=== PATIENT | female | born 1930 | race African-American/Black ===

== ENCOUNTER → 2016-09-29 | Outpatient (CLI) | payer MEDICARE, MEDICAID ==
[2016-09-29 11:12] LABS: APPEARANCE,URINE CLEAR; BILIRUBIN,URINE NEGATIVE (NEGATIVE); GLUCOSE, URINE NEGATIVE (NEGATIVE); KETONES,URINE NEGATIVE (NEGATIVE); LEUKOCYTE ESTERASE,URINE SMALL (NEGATIVE); NITRITE,URINE NEGATIVE (NEGATIVE); PROTEIN,URINE 100 mg/dL (NEGATIVE); URINE SPECIFIC GRAVITY 1.008; UROBILINOGEN,URINE NEGATIVE mg/dL (<2.0)
[2016-09-29 11:24] LABS: HEMATOCRIT 31.2 % (36.0-47.0); HEMOGLOBIN 10.4 g/dL (12.0-15.5); MEAN CORPUSCULAR HGB CONC 33.4 g/dL (32.0-36.0); MEAN CORPUSCULAR VOLUME 93 fl (80-97); RED BLOOD COUNT 3.35 10^6/uL (3.72-5.28); RED CELL DISTRIBUTION WIDTH 14.7 % (11.5-14.0); WHITE BLOOD COUNT 4.5 10^3/uL (4.0-10.5)
[2016-09-29 11:49] LABS: ANION GAP 5 (5-19); BLOOD UREA NITROGEN 50 mg/dL (7-20); CALCIUM 8.8 mg/dL (8.4-10.2); CARBON DIOXIDE 29 mmol/L (22-30); CHLORIDE 103 mmol/L (98-107); CREATININE RESULT 2.94 mg/dL (0.52-1.25); GLUCOSE 95 mg/dL (75-110); POTASSIUM 4.4 mmol/L (3.6-5.0); SODIUM 136.9 mmol/L (137-145)
== END ==
LOC: LAB 10:47
PROVIDERS: ATTEND Internal Medicine Nephrology
DX: N18.4 Chronic kidney disease, stage 4 (severe) (principal); D64.9 Anemia, unspecified; I50.9 Heart failure, unspecified; E11.9 Type 2 diabetes mellitus without complications
CPT/HCPCS: 36415; 80048; 81001; 82607; 84443; 85027

== ENCOUNTER → 2016-10-30 | Outpatient (CLI) | payer MEDICARE ==
[2016-10-31 10:39] LABS: ALANINE AMINOTRANSFERASE 13 U/L (9-52); ALKALINE PHOSPHATASE 67 U/L (38-126); ANION GAP 10 (5-19); ASPARTATE AMINO TRANSFERASE 15 U/L (14-36); BLOOD UREA NITROGEN 51 mg/dL (7-20); CALCIUM 8.9 mg/dL (8.4-10.2); CARBON DIOXIDE 26 mmol/L (22-30); CHLORIDE 103 mmol/L (98-107); GLUCOSE 104 mg/dL (75-110); LDH 395 U/L (313-618); POTASSIUM 4.1 mmol/L (3.6-5.0); SODIUM 139.2 mmol/L (137-145); TOTAL PROTEIN 5.7 g/dL (6.3-8.2)
== END ==
LOC: OD 11:51
DX: Z79.899 Other long term (current) drug therapy (principal); R06.02 Shortness of breath; R53.82 Chronic fatigue, unspecified; R63.4 Abnormal weight loss; R63.0 Anorexia; E03.9 Hypothyroidism, unspecified; I12.9 Hypertensive chronic kidney disease with stage 1 through stage 4 chronic kidney disease, or unspecified chronic kidney disease; N18.4 Chronic kidney disease, stage 4 (severe); I50.32 Chronic diastolic (congestive) heart failure; D63.1 Anemia in chronic kidney disease; C80.1 Malignant (primary) neoplasm, unspecified
CPT/HCPCS: 36415; 71020; 80053; 83036; 83615; 84443

== ENCOUNTER → 2016-11-06 | Outpatient (CLI) | payer MEDICARE, MEDICAID ==
[2016-11-06 12:28] LABS: HEMOGLOBIN 10.2 g/dL (12.0-15.5); HGB HCT DIFFERENCE -0.4; MEAN CORPUSCULAR HEMOGLOBIN 31.9 pg (27.0-33.4); MEAN CORPUSCULAR VOLUME 97 fl (80-97); RED BLOOD COUNT 3.21 10^6/uL (3.72-5.28); RED CELL DISTRIBUTION WIDTH 14.4 % (11.5-14.0); WHITE BLOOD COUNT 6.3 10^3/uL (4.0-10.5)
== END ==
LOC: OD 10:56
PROVIDERS: ATTEND Internal Medicine Nephrology
DX: N18.4 Chronic kidney disease, stage 4 (severe) (principal); D64.9 Anemia, unspecified
CPT/HCPCS: 36415; 82728; 83540; 83550; 85027

== ENCOUNTER → 2016-11-09 | Outpatient (CLI) | payer MEDICARE, MEDICAID ==
--- NOTE | 2016-11-09 18:15 | XCELERA REPORT ---
[address] [address] Transthoracic Echocardiogram Report Name: MICHAEL LAWSON Age: 85 yrs Gender: Female : 1930 Patient Status: Outpatient Patient Location: Study Date: 11/09/2016 11:14 AM Height: 64 in Weight: 128 lb BSA: 1.6 m2 Procedure: A complete two-dimensional transthoracic echocardiogram was performed (2D, M-mode, spectral and color flow Doppler). The study was technically adequate with some images being suboptimal in quality. Reason For Study: HEART FAILURE Ordering Physician: JO ZARAGOZA Performed By: Kirstin Santos Interpretation Summary The left ventricular ejection fraction is normal. Doppler measurements suggest pseudonormalized left ventricular relaxation, which is associated with grade II/IV or mild to moderate diastolic dysfunction There is mild concentric left ventricular hypertrophy. The left ventricle is grossly normal size. Wall motion cannot be accurately commented on, but no definite regional wall motion abnormalities noted. The right ventricular systolic function is normal. Borderline right atrial enlargement. The left atrium is mildly dilated. There is no mitral valve stenosis. There is a moderate amount of mitral regurgitation There is no aortic valve stenosis There is a mild to moderate amount of aortic regurgitation There is a mild amount of tricuspid regurgitation There is moderate pulmonary hypertension by echo Best estimated right ventricular systolic pressure is elevated at 50- 60mmHg. Small pericardial effusion. Large cyst noted in liver MMode/2D Measurements \T\ Calculations RVDd: 2.1 cm LVIDd: 4.6 cm FS: 38.6 % Ao root diam: 2.6 cm IVSd: 1.0 cm LVIDs: 2.8 cm EDV(Teich): 96.6 ml LVPWd: 1.0 cm ESV(Teich): 30.0 ml Ao root area: 5.3 cm2 EF(Teich): 69.0 % LA dimension: 4.4 cm Doppler Measurements \T\ Calculations MV E max cynthia: MV P1/2t max cynthia: Ao V2 max: AI max cynthia: 103.1 cm/sec 102.0 cm/sec 126.9 cm/sec 503.7 cm/sec MV A max cynthia: MV P1/2t: 58.3 msec Ao max PG: AI max P.6 cm/sec 6.4 mmHg 101.5 mmHg MV E/A: 0.78 MVA(P1/2t): 3.8 cm2 AI dec slope: MV dec slope: 512.5 cm/sec2 393.9 cm/sec2 MV dec time: AI P1/2t: 0.21 sec 374.6 msec LV V1 max PG: PA V2 max: TR max cynthia: 3.5 mmHg 68.6 cm/sec 367.8 cm/sec LV V1 max: PA max P.9 mmHg TR max P.2 cm/sec 54.1 mmHg Left Ventricle The left ventricle is grossly normal size. There is mild concentric left ventricular hypertrophy. The left ventricular ejection fraction is normal. Doppler measurements suggest pseudonormalized left ventricular relaxation, which is associated with grade II/IV or mild to moderate diastolic dysfunction. Wall motion cannot be accurately commented on, but no definite regional wall motion abnormalities noted. Right Ventricle The right ventricle is grossly normal size. There is normal right ventricular wall thickness. The right ventricular systolic function is normal. Atria Borderline right atrial enlargement. The left atrium is mildly dilated. Interarterial septum not well visualized and not well dopplered. Cannot comment on ASD/PFO presence. Mitral Valve The mitral valve leaflets are sclerotic, but show no functional abnormalities. There is no mitral valve stenosis. There is a moderate amount of mitral regurgitation. Aortic Valve The aortic valve is grossly normal. There is no aortic valve stenosis. There is a mild to moderate amount of aortic regurgitation. Tricuspid Valve The tricuspid valve is not well visualized, but is grossly normal. There is no tricuspid stenosis. There is a mild amount of tricuspid regurgitation. There is moderate pulmonary hypertension by echo. Best estimated right ventricular systolic pressure is elevated at 50-60mmHg. Pulmonic Valve The pulmonic valve is not well visualized. Great Vessels The aortic root is not well visualized but is probably normal size. The inferior vena cava appeared normal and decreased > 50% with respiration (RAP 5-10 mmHg). Effusions Small pericardial effusion. Incidental Findings Large cyst noted in liver. : JO ZARAGOZA > Debbi Luna
== END ==
LOC: RAD 09:52
DX: C80.1 Malignant (primary) neoplasm, unspecified (principal); R06.02 Shortness of breath; M85.80 Other specified disorders of bone density and structure, unspecified site; Z78.0 Asymptomatic menopausal state; R63.4 Abnormal weight loss; E03.9 Hypothyroidism, unspecified; I12.9 Hypertensive chronic kidney disease with stage 1 through stage 4 chronic kidney disease, or unspecified chronic kidney disease; I50.32 Chronic diastolic (congestive) heart failure; D63.1 Anemia in chronic kidney disease; I50.9 Heart failure, unspecified
CPT/HCPCS: 71020; 74176; 77080; 93306

== ENCOUNTER → 2016-11-24 | Outpatient (CLI) | payer MEDICARE, MEDICAID | LOC: RAD 09:02 | DX: K76.89 Other specified diseases of liver (principal); N28.1 Cyst of kidney, acquired; J90 Pleural effusion, not elsewhere classified | CPT/HCPCS: 76700; 93976 ==

== ENCOUNTER → 2017-01-25 | Outpatient (CLI) | payer MEDICARE, MEDICAID ==
[2017-01-25 11:45] LABS: HEMATOCRIT 27.5 % (36.0-47.0); HEMOGLOBIN 9.1 g/dL (12.0-15.5); HGB HCT DIFFERENCE -0.2; MEAN CORPUSCULAR VOLUME 94 fl (80-97); RED BLOOD COUNT 2.93 10^6/uL (3.72-5.28); RED CELL DISTRIBUTION WIDTH 14.6 % (11.5-14.0); WHITE BLOOD COUNT 6.5 10^3/uL (4.0-10.5)
[2017-01-25 12:11] LABS: ANION GAP 11 (5-19); BLOOD UREA NITROGEN 55 mg/dL (7-20); CALCIUM 9.2 mg/dL (8.4-10.2); CARBON DIOXIDE 17 mmol/L (22-30); CHLORIDE 114 mmol/L (98-107); GLUCOSE 104 mg/dL (75-110); POTASSIUM 5.6 mmol/L (3.6-5.0)
== END ==
LOC: LAB 11:32
PROVIDERS: ATTEND Internal Medicine Nephrology
DX: N18.4 Chronic kidney disease, stage 4 (severe) (principal); E50.9 Vitamin A deficiency, unspecified; D64.9 Anemia, unspecified; E11.9 Type 2 diabetes mellitus without complications
CPT/HCPCS: 36415; 80048; 85027

== ENCOUNTER 2017-01-28 01:24 | Emergency (ER) | payer MEDICARE, MEDICAID ==
[2017-01-28] MEDS ORDERED: FUROSEMIDE INJ/PF 40 MG/4 ML SDV IV ONE (01:37)
[2017-01-28] MEDS ORDERED: NITROGLYCERIN/D5W 250 ML IV PRN ×2 (01:39→08:36)
--- NOTE | 2017-01-28 01:42 | ER Document Report ---
ED Respiratory Problem - General Stated Complaint: SHORTNESS OF BREATH Notes: This is an 86-year-old -[place] female with multiple medical problems to include CHF, hypertension, chronic kidney disease who presents in severe respiratory distress. EMS states that her room air sat on arrival was 79%. Also she was noted to be significantly hypertensive initially with a blood pressure of 270/176. In route she was placed on CPAP by EMS and was given 0.4 of nitroglycerin sublingual as well as a DuoNeb. Upon arrival to the emergency department patient is alert and able to say that she is breathing much better with the CPAP. Family states that patient was seen by her kidney doctor Dr. Kwon yesterday. They state that she has had difficulty controlling her blood pressure and has been swollen at home for the past few days. Yesterday she was instructed to double her Lasix dose from 20 mg to 40 mg once a day. Also she was instructed to increase her clonidine dose. Patient denies any chest pain. She has not been running fevers. TRAVEL OUTSIDE OF THE [place] IN LAST 30 DAYS: No - Related Data Allergies/Adverse Reactions: No Known Allergies Allergy (Verified 01/22/16 16:38) Past Medical History - General Information source: [facility] Records - Social History Smoking Status: Unknown if Ever Smoked Family History: CAD - Past Medical History Cardiac Medical History: Reports: Hx Coronary Artery Disease, Hx Hypertension Denies: Hx Heart Attack Pulmonary Medical History: Denies: Hx Asthma, Hx Bronchitis, Hx COPD, Hx Pneumonia Neurological Medical History: Denies: Hx Cerebrovascular Accident, Hx Seizures Endocrine Medical History: Reports: Hx Diabetes Mellitus Type 2, Hx Hypothyroidism Renal/ Medical History: Reports: Other - stage 4 CKD, no history of dialysis. Denies: Hx Hemodialysis Musculoskeltal Medical History: Reports Hx Arthritis - general Psychiatric Medical History: Denies: Hx Depression Past Surgical History: Reports: Hx Abdominal Surgery - 'BLOCKAGE', Hx Orthopedic Surgery - HERNIATED DISCS. Denies: Hx Hysterectomy - Immunizations Hx Diphtheria, Pertussis, Tetanus Vaccination: Yes Review of Systems - Review of Systems Constitutional: denies: Chills, Fever EENT: No symptoms reported Cardiovascular: Orthopnea, Dyspnea. denies: Chest pain Respiratory: See HPI Gastrointestinal: No symptoms reported Genitourinary: No symptoms reported Musculoskeletal: See HPI, Leg swelling Skin: No symptoms reported Hematologic/Lymphatic: No symptoms reported Neurological/Psychological: No symptoms reported Physical Exam - Vital signs Vitals: Resp Pulse Ox 23 H 99 01/28/17 01:30 01/28/17 01:30 - Notes Notes: PHYSICAL EXAMINATION: GENERAL: Frail elderly ill-appearing female on CPAP who is alert and conversant. HEAD: Atraumatic, normocephalic. EYES: Pupils equal round and reactive to light, extraocular movements intact, sclera anicteric, conjunctiva are normal. ENT: nares patent, oropharynx clear without exudates. Moist mucous membranes. NECK: Normal range of motion, supple without lymphadenopathy LUNGS: Faint scattered wheeze bilaterally. Bibasilar crackles. Diminished breath sounds in the left base. HEART: Regular rate and rhythm without murmurs ABDOMEN: Soft, nontender, normoactive bowel sounds. EXTREMITIES: 2+ pitting edema in the bilateral lower extremities. NEUROLOGICAL: Cranial nerves grossly intact. No gross focal motor or sensory deficits appreciated. PSYCH: Normal mood, normal affect. SKIN: Warm, Dry, normal turgor, no rashes or lesions noted. Course - Re-evaluation Re-evalutation: 01/28/17 01:47 Patient presents critically ill and acute respiratory distress although improving with the CPAP. She will be given Lasix IV as well as placed on a nitro drip. We transitioned her CPAP to our BiPAP machine. She will require frequent re-evaluations. 01/28/17 06:21 Pt has had dramatic improvement since initiation of BiPap and NTG drip. CT demonstrates moderate pericardial effusion, bilateral pleural effusions I have discussed the case with cardiology Dr. Luna, and initial plan was to order echo and await 2nd troponin. Second troponin is elevated as well to 0.33. Patient is denying chest pain to me. There are no acute ischemic changes seen on her EKG. I discussed again with Dr. uLna and he recommends admitting here to hospitalist and proceeding with echocardiogram. Discussed with pateint and family. Patient to be transfused 1 unit PRBC given significant anemia Discussed case with Dr. Monge... admit to [facility]. - Vital Signs Vital signs: Temp Pulse Resp BP Pulse Ox 97.9 F 14 180/82 H 100 01/28/17 10:36 01/28/17 10:36 01/28/17 10:36 01/28/17 10:36 - Laboratory Result Diagrams: 01/28/17 01:42 01/28/17 08:42 Laboratory results interpreted by me: 01/28/17 01/28/17 01/28/17 01:42 01:42 01:42 WBC 11.5 H RBC 2.50 L Hgb 7.6 L Hct 23.6 L RDW 14.8 H Seg Neutrophils % 83.6 H Lymphocytes % 8.7 L Absolute Neutrophils 9.7 H Carbonic Acid ABG pCO2 ABG pO2 ABG HCO3 ABG Total CO2 VBG pCO2 VBG HCO3 Chloride 115 H Carbon Dioxide 17 L BUN 47 H Creatinine 3.16 H Est GFR ( Amer) 17 L Est GFR (Non-Af Amer) 14 L Glucose 175 H POC Glucose Direct Bilirubin 0.7 H AST 86 H ALT 60 H NT-Pro-B Natriuret Pep 34264 H Total Protein 5.3 L Albumin 2.7 L Urine Protein Crossmatch 01/28/17 01/28/17 01/28/17 01:42 04:28 08:25 WBC RBC Hgb Hct RDW Seg Neutrophils % Lymphocytes % Absolute Neutrophils Carbonic Acid 0.86 L ABG pCO2 28.7 L ABG pO2 104.9 H ABG HCO3 17.5 L ABG Total CO2 18.3 L VBG pCO2 VBG HCO3 Chloride Carbon Dioxide BUN Creatinine Est GFR ( Amer) Est GFR (Non-Af Amer) Glucose POC Glucose Direct Bilirubin AST ALT NT-Pro-B Natriuret Pep Total Protein Albumin Urine Protein 100 H Crossmatch See Detail 01/28/17 01/28/17 01/28/17 08:42 08:42 10:09 WBC RBC Hgb Hct RDW Seg Neutrophils % Lymphocytes % Absolute Neutrophils Carbonic Acid ABG pCO2 ABG pO2 ABG HCO3 ABG Total CO2 VBG pCO2 31.5 L VBG HCO3 18.1 L Chloride 113 H Carbon Dioxide 19 L BUN 46 H Creatinine 3.16 H Est GFR ( Amer) 17 L Est GFR (Non-Af Amer) 14 L Glucose 126 H POC Glucose 124 H Direct Bilirubin AST ALT NT-Pro-B Natriuret Pep Total Protein Albumin Urine Protein Crossmatch Critical Care Note - Critical Care Note Total time excluding time spent on procedures (mins): 40 - time spent on frequent re-evaluations and managment and discussion with consultants and family members, exclusive of any procedures Discharge - Discharge Clinical Impression: Respiratory distress, Hypertensive emergency, Pericardial effusion, Elevated troponin CHF exacerbation Qualifiers: Congestive heart failure type: unspecified congestive heart failure type Qualified Code(s): I50.9 - Heart failure, unspecified Anemia Qualifiers: Anemia type: unspecified type Qualified Code(s): D64.9 - Anemia, unspecified Condition: Serious Disposition: ADMITTED INPATIENT Admitting Provider: Hospitalist - Dr Monge Unit Admitted: ICU
[2017-01-28 02:06] LABS: ARTERIAL BLOOD BASE EXCESS -6.5 mmol/L; ARTERIAL BLOOD O2 SATURATION 97.9 % (94-98)
[2017-01-28] MEDS ORDERED: CEFTRIAXONE 1 GM/D5W RTU 50 ML IV ONE (02:09)
[2017-01-28] MEDS ORDERED: AZITHROMYCIN INJ 500 MG VIAL IV ONE (02:09)
[2017-01-28 02:14] LABS: ABSOLUTE BASOPHILS # (AUTO) 0.1 10^3/uL (0.0-0.2); ABSOLUTE EOSINOPHILS # (AUTO) 0.2 10^3/uL (0.0-0.6); ABSOLUTE MONOCYTES (AUTO) 0.6 10^3/uL (0.1-1.4); ABSOLUTE NEUT (AUTO) 9.7 10^3/uL (1.7-8.2); BASOPHILS % (AUTO) 0.7 % (0-2); EOSINOPHILS % (AUTO) 1.8 % (0-6); HEMATOCRIT 23.6 % (36.0-47.0); HGB HCT DIFFERENCE -0.8; LYMPHOCYTES % (AUTO) 8.7 % (13-45); MEAN CORPUSCULAR HEMOGLOBIN 30.4 pg (27.0-33.4); MEAN CORPUSCULAR HGB CONC 32.3 g/dL (32.0-36.0); MEAN CORPUSCULAR VOLUME 94 fl (80-97); MONOCYTES % (AUTO) 5.2 % (3-13); RED CELL DISTRIBUTION WIDTH 14.8 % (11.5-14.0); SEGMENTED NEUTROPHILS % (AUTO) 83.6 % (42-78); WHITE BLOOD COUNT 11.5 10^3/uL (4.0-10.5)
[2017-01-28 02:21] LABS: PARTIAL THROMBOPLASTIN TIME 28.6 SEC (23.5-35.8); PROTHROMBIN TIME 14.1 SEC (11.4-15.4)
[2017-01-28 02:23] LABS: HEMOGLOBIN 7.6 g/dL (12.0-15.5)
[2017-01-28 02:27] LABS: ALANINE AMINOTRANSFERASE 60 U/L (9-52); ALBUMIN 2.7 g/dL (3.5-5.0); ALKALINE PHOSPHATASE 53 U/L (38-126); ANION GAP 7 (5-19); ASPARTATE AMINO TRANSFERASE 86 U/L (14-36); BILIRUBIN,DIRECT 0.7 mg/dL (0.0-0.4); BILIRUBIN,TOTAL 0.9 mg/dL (0.2-1.3); BLOOD UREA NITROGEN 47 mg/dL (7-20); CALCIUM 8.6 mg/dL (8.4-10.2); CARBON DIOXIDE 17 mmol/L (22-30); CHLORIDE 115 mmol/L (98-107); CREATINE KINASE 99 U/L (30-135); CREATININE RESULT 3.16 mg/dL (0.52-1.25); GLUCOSE 175 mg/dL (75-110); POTASSIUM 4.7 mmol/L (3.6-5.0); SODIUM 138.7 mmol/L (137-145); TOTAL PROTEIN 5.3 g/dL (6.3-8.2)
[2017-01-28 02:39] LABS: CREATINE KINASE MB 1.89 ng/mL (<4.55)
[2017-01-28 02:47] LABS: TROPONIN I 0.068 ng/mL
[2017-01-28] MEDS ORDERED: NORMAL SALINE 250 ML IV PRN (03:19)
[2017-01-28] MEDS ORDERED: ASPIRIN 300 MG SUPP, RECTAL PR ONE (06:21)
[2017-01-28 07:47] LABS: ADD ON TESTING BLD IN LAB ACKNOWLEDGE
[2017-01-28] MEDS ORDERED: IPRATROPIUM/ALBUTEROL 0.5-2.5 MG/3 ML AMPUL NEB PRN (08:15)
--- NOTE | 2017-01-28 08:22 | PDOC H&P/TRANSFER SUM ---
General Admission Date/PCP: 01/28/17 06:31 PCP ?? Nephro Doyle - Transfer Diagnosis (1) Acute respiratory failure with hypoxia Diagnosis Summary: Continue BiPAP. Wean as tolerated. (2) Acute on chronic diastolic (congestive) heart failure Diagnosis Summary: Dr. Luna to order echocardiogram and see in consultation. Resume home medications as appropriate once these have been determined and reviewed. (4) Hypothyroidism Diagnosis Summary: Resume home medications as appropriate once these have been determined and reviewed. (5) Hypertensive emergency Diagnosis Summary: Continue nitroglycerin drip. Appropriate vital sign parameters in chart. (6) Pericardial effusion Diagnosis Summary: Patient discussed in detail with daytime hospitalist team. Tentative plans at this point are to transfer patient to a tertiary center for urgent dialysis, with our facility lacking this capability on the weekend. I have strongly encouraged patient not to get out of bed without notifying staff , to avoid a fall with injury. Knee high SCDs for DVT prophylaxis; with patient requiring blood transfusion, will forego Lovenox or heparin at this point in time. Impression and plans were discussed with patient, and daughter, both of whom concur. Time spent in evaluation and management of patient: 90 critical care minutes. (7) Elevated troponin Diagnosis Summary: Likely due to elevated blood pressure. Patient denies chest pain. (8) Anemia Diagnosis Summary: Blood transfusion has been ordered by emergency room physician. (9) Abnormal chest CT Diagnosis Summary: Bilateral pleural effusions, with basilar atelectasis. Incentive spirometry. - Transfer Medications Transfer Medications: Current Medications Nitroglycerin/Dextrose (Ntg Rtu 50 Mg/D5w 250 Ml Iv Premix Bottle) 250 mls @ 0 mls/hr IV CONTINUOUS PRN; Protocol; Titrate PRN Reason: THIS MED IS NOT "PRN" Stop: 02/27/17 01:38 Last Admin: 01/28/17 03:17 Dose: 250 ml Sodium Chloride (Nacl 0.9% 250 Ml Iv Soln) 250 mls @ 0 mls/hr IV CONTINUOUS PRN ; As Directed PRN Reason: AFTER EACH UNIT Stop: 01/29/17 03:18 - Allergies Allergies/Adverse Reactions: No Known Allergies Allergy (Verified 01/22/16 16:38) History of Present Illness Admission Date/PCP: 01/28/17 06:31 Patient complains of: difficulty breathing History of Present Illness: MICHAEL LAWSON is a 86 year old female with underlying chronic diastolic congestive heart failure, stage IV chronic kidney disease, hypothyroidism, difficult to control blood pressure, and anemia, who presents to the emergency room for evaluation of above complaint. Patient has been discussed with emergency room physician who evaluated the patient. Patient herself is somewhat fatigued, currently on BiPAP, and as a result, her daughter, who is present at her side with her approval, provides a good bit of information concerning both acute and chronic aspects of her health care. Was seen by Dr. Kwon on the sixth for complaints of several day history of gradually increasing shortness of breath, weight gain, and lower extremity swelling. Shortness of breath was particularly noticeable with much of any exertion. Lasix doubled from 20-40 mg a day, along with increase in her clonidine. Shortness of breath became progressively worse, in particular over the last 18 hours or so. On EMS arrival at their home, room air saturation was 79% with an initial blood pressure reportedly 270/176. CPAP was applied by EMS and patient was given 0.4 mg of sublingual nitroglycerin, along with a DuoNeb. Remained in significant respiratory distress upon arrival in the emergency room , but has improved nicely, according to the emergency room physician, with change of CPAP to BiPAP, along with initiation of nitroglycerin drip and 40 mg of IV Lasix. No fever chills, chest or abdominal pain, nausea vomiting, diarrhea or dysuria. Patient and daughter states that while she is compliant with her medications, she is not as compliant with her diet. Labs and x-ray results, including pericardial effusion, were discussed by the emergency room physician with on-call cardiology, Dr. Luna, who felt comfortable admitting the patient to our facility. plans are to obtain echocardiogram, Dr. Luna will see in consultation. Laboratory results are listed in [facility] and are reviewed. X-ray summary results are listed below, with full report(s) reviewed. . EKG reviewed. And compared to a tracing from June 01 of last year. Social history/personal habits: Lives with family. No use of alcohol tobacco or illicit drugs. Allergies/adverse reactions NKDA. Home medications Home medications initially autopopulated into [facility] may not accurately reflect patient's true medications, dosages, and/or frequencies. safety relief valve technician to reconcile medications. Unfortunately, patient uncertain of her medications/dosages/frequencies. REVIEW OF SYSTEMS: See history and present illness.No further information available this point in time. PHYSICAL EXAMINATION: 5 feet 4 inches tall. 66.3 kg. BMI 25.1 kg/m. Pulse 77 and regular. 100% saturation on BiPAP 12/6, 40%. Respirations are 32, with patient at times making mild use of her accessory respiratory muscles. Manual Blood pressure 192 /100, right arm, 208/98, left arm. Well-nourished well-developed -[place] female appearing a number of years younger than her stated age. Fatigued, but does respond appropriately to basic questions. Appears not to feel very well. However, pleasant and cooperative. Mildly anxious, but without agitation. Skin is warm and dry. No grossly obvious evidence of rash in areas of skin examined. No subcutaneous nodules palpated. ENT: Hearing grossly normal to normal conversation. Tongue midline on protrusion pink and slightly tacky. Exam slightly limited by BiPAP mask with attaching straps. Eyes: No scleral icterus. Pupils equal and reactive to light at 4 mm. [place] conjunctivae. Neck is supple and nontender to gentle active range of motion and palpation. Midline trachea. No palpable thyroid nodule mass enlargement or tenderness. Lymphatic: No palpable cervical or clavicular nodes. Neck and lymphatic exams limited by patient body habitus. Exam slightly limited by BiPAP mask with attaching straps. Psychiatric: Difficult to evaluate adequately due to her current status, but patient does respond appropriately to basic questions. Lungs: Auscultation reveals clear and equal breath sounds bilaterally. Cardiovascular: Heart regular rate and rhythm, without gallop murmur or rub. No abdominal aortic bruits. Scant bilateral symmetric calf, ankle and pedal edema. Faintly palpable dorsalis pedis pulses. Difficult to evaluate for carotid bruit due to airway sounds from BiPAP device. Abdomen: soft, slightly, distended nontender with positive bowel sounds. Unable to adequately evaluate abdomen for masses or organomegaly due to distention. Extremities: Feet are warm and dry. No calf tenderness to compression. Gentle manipulation of lower extremities fails to reveal any obvious evidence of injury or instability to knees hips or ankles. Neurologic: Moves upper extremities grossly normally. Patellar reflexes absent. Absent Babinski. Light touch is intact at feet. Dorsiflexion and plantarflexion of feet 5 / 5 and symmetric. Past Medical History Cardiac Medical History: Reports: Congestive Heart Failure, Coronary Artery Disease, Hypertension Denies: DVT, Myocardial Infarction, Pulmonary Embolism Pulmonary Medical History: Denies: Asthma, Bronchitis, Chronic Obstructive Pulmonary Disease (COPD), Pneumonia, Sleep Apnea EENT Medical History: Reports: Eyes - Glasses, Ears - Partial hearing loss Denies: Throat Neurological Medical History: Denies: Hemorrhagic CVA, Ischemic CVA, Seizures Endocrine Medical History: Reports: Diabetes Mellitus Type 2, Hypothyroidism Denies: Hyperthyroidism Renal/ Medical History: Reports: Chronic Kidney Disease GI Medical History: Reports: Other - "Spot" on her liver, present for years, followed as an outpatient. Denies: Cirrhosis, Gastroesophageal Reflux Disease, Hepatitis, Peptic Ulcer Disease Musculoskeltal Medical History: Reports: Arthritis - general Skin Medical History: Reports: None Psychiatric Medical History: Denies: Alcohol Dependency, Depression, General Anxiety Disorder, Substance Abuse, Tobacco Dependency Hematology: Reports: Anemia Infectious Medical History: Denies: Clostridium Difficile, Hepatitis B, Hepatitis C, Methicillin- Resistant Staph Aureus Past Surgical History Past Surgical History: Reports: Orthopedic Surgery - HERNIATED DISCS, Other - Abdominal surgery for "blockage." Denies: Hysterectomy Social History Information Source: Patient, Relative - Daughter, Emergency Med Personnel, [facility] Records Lives with: Family Smoking Status: Unknown if Ever Smoked Frequency of Alcohol Use: None Hx Recreational Drug Use: No Hx Prescription Drug Abuse: No - Advance Directive Resuscitation Status: Full Code Surrogate healthcare decision maker:: Family Family History Family History: CAD Parental Family History Reviewed: No - due to patient status. tinformation from hospital records. Children Family History Reviewed: No - due to patient status. tinformation from hospital records. Sibling(s) Family History Reviewed.: No - due to patient status. tinformation from hospital records. Physical Exam Vital Signs: Temp Pulse Resp BP Pulse Ox 98.0 F 16 192/100 H 100 01/28/17 01:32 01/28/17 05:16 01/28/17 06:51 01/28/17 05:16 Results Impressions: Chest X-Ray 01/28/17 01:38 IMPRESSION: Small bilateral pleural effusions with bibasilar airspace opacities , may represent atelectasis or pneumonia. Mild central vascular congestion. Interval development of severe cardiomegaly, a pericardial effusion is not excludable. Chest CT 01/28/17 03:32 IMPRESSION: Moderate pericardial effusion. Moderate bilateral pleural effusions right greater than left. Stable hepatic cysts.
[2017-01-28 08:28] LABS: MAGNESIUM 2.2 mg/dL (1.6-2.3)
[2017-01-28] MEDS ORDERED: GLUCAGON,HUMAN RECOMB 1 MG INJ IM PRN (08:28)
[2017-01-28] MEDS ORDERED: DEXTROSE 40% GEL 15 GM TUBE PO PRN ×2 (08:28)
[2017-01-28] MEDS ORDERED: DEXTROSE 50%-WATER 25 GM/50 ML DISP.SYRIN IV PRN ×2 (08:28)
[2017-01-28] MEDS ORDERED: INSULIN REG, HUMAN 100 UNIT/ML 3 ML VIAL (PYX) SUBCUT PRN (08:28)
[2017-01-28] MEDS ORDERED: ACETAMINOPHEN 325 MG TABLET PO PRN (08:44)
[2017-01-28 08:56] LABS: APPEARANCE,URINE CLEAR; BILIRUBIN,URINE NEGATIVE (NEGATIVE); GLUCOSE, URINE NEGATIVE (NEGATIVE); KETONES,URINE NEGATIVE (NEGATIVE); LEUKOCYTE ESTERASE,URINE NEGATIVE (NEGATIVE); NITRITE,URINE NEGATIVE (NEGATIVE); PROTEIN,URINE 100 mg/dL (NEGATIVE); URINE SPECIFIC GRAVITY 1.006; UROBILINOGEN,URINE NEGATIVE mg/dL (<2.0)
--- NOTE | 2017-01-28 08:59 | EKG REPORT ---
SEVERITY:- ABNORMAL ECG - SINUS RHYTHM ANTERIOR INFARCT, AGE INDETERMINATE LOW VOLTAGE STANDARD AND LIMB LEADS. : Confirmed by: Elijah Lewis MD 28-Jan-2017 08:58:23
--- NOTE | 2017-01-28 09:11 | PDOC TRANSFER SUMMARY ---
General Admission Date/PCP: 01/28/17 06:31 Admission Date: 01/28/17 Transfer Date: 01/28/17 Accepting Facility: [facility] Accepting Physician: Dr. 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 ml/min Is this a current diagnosis for this admission?: Yes (4) Acute on chronic diastolic (congestive) heart failure Is this a current diagnosis for this admission?: Yes (5) Elevated troponin Is this a current diagnosis for this admission?: Yes (6) Bilateral pleural effusion Is this a current diagnosis for this admission?: Yes (7) Abnormal chest CT Is this a current diagnosis for this admission?: Yes (8) Hypothyroidism Is this a current diagnosis for this admission?: Yes (9) Pericardial effusion Is this a current diagnosis for this admission?: Yes (10) Anemia Is this a current diagnosis for this admission?: Yes (11) IDDM (insulin dependent diabetes mellitus) Is this a current diagnosis for this admission?: Yes - Transfer Medications Transfer Medications: Current Medications Acetaminophen (Tylenol 325 Mg Tablet) 650 mg PO Q8HP PRN Stop: 02/27/17 08:43 Albuterol/Ipratropium (Duoneb 3 Ml Ampul) 3 ml NEB RTQ4HP PRN Stop: 02/27/17 08:14 Dextrose (Dextrose Inj 50% Syringe (25 Gm/50 Ml)) 12.5 gm IV PRN PRN; Protocol PRN Reason: FOR BG 50-69 IN ALERT PATIENT Stop: 02/27/17 08:27 Dextrose (Dextrose Inj 50% Syringe (25 Gm/50 Ml)) 25 gm IV PRN PRN PRN Reason: Protocol Stop: 02/27/17 08:27 Glucagon (Glucagen Inj 1 Mg Vial) 1 mg IM PRN PRN; Protocol PRN Reason: Evaluate for BG < 70 Stop: 02/27/17 08:27 Glucose (Glutose 40% Gel 15 Gm Tube) 15 gm PO PRN PRN; Protocol PRN Reason: FOR BG 50-69 IN ALERT PATIENT Stop: 02/27/17 08:27 Glucose (Glutose 40% Gel 15 Gm Tube) 30 gm PO PRN PRN; Protocol PRN Reason: FOR BG < 50 IN ALERT PATIENT Stop: 02/27/17 08:27 Sodium Chloride (Nacl 0.9% 250 Ml Iv Soln) 250 mls @ 0 mls/hr IV CONTINUOUS PRN ; As Directed PRN Reason: AFTER EACH UNIT Stop: 01/29/17 03:18 Nitroglycerin/Dextrose (Ntg Rtu 50 Mg/D5w 250 Ml Iv Premix Bottle) 250 mls @ 0 mls/hr IV CONTINUOUS PRN; Protocol; Titrate PRN Reason: THIS MED IS NOT "PRN" Stop: 02/27/17 08:35 Insulin Human Regular (Humulin R (Pyxis) Insulin 100 Unit/Ml 3ml) 0 - 12 unit SUBCUT Q6HP PRN PRN Reason: Protocol Stop: 02/27/17 08:27 Sodium Chloride (Saline Flush 2.5 Ml Monoject Prefil Syrin) 2.5 ml IV Q8 MARISELA Stop: 02/27/17 13:59 Hydralazine 100 mg by mouth every 8 hours Coreg 25 mg by mouth every 12 hours Clonidine 0.1 mg by mouth every 8 hours Levothyroxine 25 g by mouth daily Lasix 40 mg IV every 8 hours Aspirin 81 mg by mouth daily - Allergies Allergies/Adverse Reactions: No Known Allergies Allergy (Verified 01/22/16 16:38) Hospital Course Hospital Course: Patient presented to our facility with shortness of breath. She has a history of stage V chronic kidney disease and is followed by Dr. Jung Kwon of nephrology. Family states that Dr. Kwon has mentioned that she may be approaching dialysis range soon. Upon presentation patient was found to be hypoxic with O2 sat in the 70s and has been started on BiPAP for respiratory support. Patient was noted to have hypertensive emergency with blood pressure as high as 235/202. She was also noted to have pulmonary edema, bilateral pleural effusions, moderate pericardial effusion. Second troponin was elevated at 0.3. Patient denies chest pain. EKG showed no ST elevation or depression. With regard to respiratory failure patient is currently comfortable on BiPAP at this time. She will need emergent hemodialysis for fluid management. For now she has been placed on nitroglycerin drip, IV Lasix. With regard to pericardial and pleural effusions patient may need CT surgery recommendations. I would imagine pericardial effusion is secondary to end- stage renal disease. With regard to hypertensive emergency patient is currently on nitroglycerin drip at 15 mcg/min. She has been started on her outpatient blood pressure medicines which include clonidine, Coreg, hydralazine. With regard to elevated troponin. Patient denies chest pain. EKG shows no ST elevation or depression. This may be secondary to decompensated CHF however patient warrants further cardiology evaluation. She has been started on aspirin. She is very taking a beta chris at this time. Patient has history of insulin-dependent diabetes. Medications have not been verified at this time. Patient is placed on sliding scale insulin for now. Case has been discussed with fraud analyst on-call at [facility] (Dr. Lambert) and he agrees to accept patient in transfer to medical ICU. Physical Exam Vital Signs: Temp Pulse Resp BP Pulse Ox 97.5 F 16 191/85 H 100 01/28/17 07:45 01/28/17 07:58 01/28/17 07:56 01/28/17 07:58 GENERAL: Slightly tachypneic on BiPAP HEENT: Conjunctiva clear, nonicteric, moist mucous membranes, no JVD, midline trachea RESPIRATORY: Bilateral crackles anterior lung field CARDIAC: Regular rate and rhythm, no murmurs/gallops/rubs ABDOMEN: Soft, nondistended, nontender, positive bowel sounds, no rebound, no guarding EXTREMETIES: 1+ bilateral lower extremity edema NEUROLOGIC: Alert, oriented to person/place/time, CN's grossly intact, no focal deficits SKIN: No rash, wounds PSYCH: Normal mood, normal affect Results Laboratory Results: Labs- All tests 24 hr 01/28/17 01/28/17 01/28/17 01:42 01:42 01:42 WBC 11.5 H RBC 2.50 L Hgb 7.6 L Hct 23.6 L MCV 94 MCH 30.4 MCHC 32.3 RDW 14.8 H Plt Count 152 Seg Neutrophils % 83.6 H Lymphocytes % 8.7 L Monocytes % 5.2 Eosinophils % 1.8 Basophils % 0.7 Absolute Neutrophils 9.7 H Absolute Lymphocytes 1.0 Absolute Monocytes 0.6 Absolute Eosinophils 0.2 Absolute Basophils 0.1 PT 14.1 INR 1.06 APTT 28.6 Carbonic Acid HCO3/H2CO3 Ratio ABG pH ABG pCO2 ABG pO2 ABG HCO3 ABG Total CO2 ABG O2 Saturation ABG Base Excess FiO2 Sodium 138.7 Potassium 4.7 Chloride 115 H Carbon Dioxide 17 L Anion Gap 7 BUN 47 H Creatinine 3.16 H Est GFR ( Amer) 17 L Est GFR (Non-Af Amer) 14 L Glucose 175 H Calcium 8.6 Magnesium Total Bilirubin 0.9 Direct Bilirubin 0.7 H Indirect Bilirubin Not Reportable Neonat Total Bilirubin Not Reportable AST 86 H ALT 60 H Alkaline Phosphatase 53 Creatine Kinase 99 CK-MB (CK-2) Troponin I NT-Pro-B Natriuret Pep Total Protein 5.3 L Albumin 2.7 L Urine Color Urine Appearance Urine pH Ur Specific [place] Urine Protein Urine Glucose (UA) Urine Ketones Urine Blood Urine Nitrite Urine Bilirubin Urine Urobilinogen Ur Leukocyte Esterase Urine WBC (Auto) Urine RBC (Auto) U Hyaline Cast (Auto) Urine Bacteria (Auto) Squamous Epi Cells Auto Urine Ascorbic Acid Blood Type Blood Type Confirm Antibody Screen Crossmatch 01/28/17 01/28/17 01/28/17 01:42 01:42 04:28 WBC RBC Hgb Hct MCV MCH MCHC RDW Plt Count Seg Neutrophils % Lymphocytes % Monocytes % Eosinophils % Basophils % Absolute Neutrophils Absolute Lymphocytes Absolute Monocytes Absolute Eosinophils Absolute Basophils PT INR APTT Carbonic Acid 0.86 L HCO3/H2CO3 Ratio 20:1 ABG pH 7.40 ABG pCO2 28.7 L ABG pO2 104.9 H ABG HCO3 17.5 L ABG Total CO2 18.3 L ABG O2 Saturation 97.9 ABG Base Excess -6.5 FiO2 50% Sodium Potassium Chloride Carbon Dioxide Anion Gap BUN Creatinine Est GFR ( Amer) Est GFR (Non-Af Amer) Glucose Calcium Magnesium Total Bilirubin Direct Bilirubin Indirect Bilirubin Neonat Total Bilirubin AST ALT Alkaline Phosphatase Creatine Kinase CK-MB (CK-2) 1.89 Troponin I 0.068 NT-Pro-B Natriuret Pep 77554 H Total Protein Albumin Urine Color Urine Appearance Urine pH Ur Specific [place] Urine Protein Urine Glucose (UA) Urine Ketones Urine Blood Urine Nitrite Urine Bilirubin Urine Urobilinogen Ur Leukocyte Esterase Urine WBC (Auto) Urine RBC (Auto) U Hyaline Cast (Auto) Urine Bacteria (Auto) Squamous Epi Cells Auto Urine Ascorbic Acid Blood Type O POSITIVE Blood Type Confirm Antibody Screen POSITIVE Crossmatch See Detail 01/28/17 01/28/17 01/28/17 04:29 05:25 05:25 WBC RBC Hgb Hct MCV MCH MCHC RDW Plt Count Seg Neutrophils % Lymphocytes % Monocytes % Eosinophils % Basophils % Absolute Neutrophils Absolute Lymphocytes Absolute Monocytes Absolute Eosinophils Absolute Basophils PT INR APTT Carbonic Acid HCO3/H2CO3 Ratio ABG pH ABG pCO2 ABG pO2 ABG HCO3 ABG Total CO2 ABG O2 Saturation ABG Base Excess FiO2 Sodium Potassium Chloride Carbon Dioxide Anion Gap BUN Creatinine Est GFR ( Amer) Est GFR (Non-Af Amer) Glucose Calcium Magnesium 2.2 Total Bilirubin Direct Bilirubin Indirect Bilirubin Neonat Total Bilirubin AST ALT Alkaline Phosphatase Creatine Kinase CK-MB (CK-2) Troponin I 0.339 NT-Pro-B Natriuret Pep Total Protein Albumin Urine Color Urine Appearance Urine pH Ur Specific [place] Urine Protein Urine Glucose (UA) Urine Ketones Urine Blood Urine Nitrite Urine Bilirubin Urine Urobilinogen Ur Leukocyte Esterase Urine WBC (Auto) Urine RBC (Auto) U Hyaline Cast (Auto) Urine Bacteria (Auto) Squamous Epi Cells Auto Urine Ascorbic Acid Blood Type Blood Type Confirm O POSITIVE Antibody Screen Crossmatch 01/28/17 08:25 WBC RBC Hgb Hct MCV MCH MCHC RDW Plt Count Seg Neutrophils % Lymphocytes % Monocytes % Eosinophils % Basophils % Absolute Neutrophils Absolute Lymphocytes Absolute Monocytes Absolute Eosinophils Absolute Basophils PT INR APTT Carbonic Acid HCO3/H2CO3 Ratio ABG pH ABG pCO2 ABG pO2 ABG HCO3 ABG Total CO2 ABG O2 Saturation ABG Base Excess FiO2 Sodium Potassium Chloride Carbon Dioxide Anion Gap BUN Creatinine Est GFR ( Amer) Est GFR (Non-Af Amer) Glucose Calcium Magnesium Total Bilirubin Direct Bilirubin Indirect Bilirubin Neonat Total Bilirubin AST ALT Alkaline Phosphatase Creatine Kinase CK-MB (CK-2) Troponin I NT-Pro-B Natriuret Pep Total Protein Albumin Urine Color YELLOW Urine Appearance CLEAR Urine pH 5.0 Ur Specific [place] 1.006 Urine Protein 100 H Urine Glucose (UA) NEGATIVE Urine Ketones NEGATIVE Urine Blood NEGATIVE Urine Nitrite NEGATIVE Urine Bilirubin NEGATIVE Urine Urobilinogen NEGATIVE Ur Leukocyte Esterase NEGATIVE Urine WBC (Auto) 2 Urine RBC (Auto) 0 U Hyaline Cast (Auto) 5 Urine Bacteria (Auto) TRACE Squamous Epi Cells Auto 1 Urine Ascorbic Acid NEGATIVE Blood Type Blood Type Confirm Antibody Screen Crossmatch Impressions: Chest X-Ray 01/28/17 01:38 IMPRESSION: Small bilateral pleural effusions with bibasilar airspace opacities , may represent atelectasis or pneumonia. Mild central vascular congestion. Interval development of severe cardiomegaly, a pericardial effusion is not excludable. Chest CT 01/28/17 03:32 IMPRESSION: Moderate pericardial effusion. Moderate bilateral pleural effusions right greater than left. Stable hepatic cysts. Plan Discharge Plan: Transfer to tertiary care facility for intensive care, nephrology, CT surgery, cardiology evaluations. Time Spent: Greater than 30 Minutes
[2017-01-28 09:37] LABS: VENOUS BLOOD BASE EXCESS -6.2 mmol/L; VENOUS BLOOD HCO3 18.1 mmol/L (20-32); VENOUS BLOOD PCO2 31.5 mmHg (35-63); VENOUS BLOOD PH 7.38 (7.30-7.42)
[2017-01-28 09:49] LABS: ANION GAP 9 (5-19); BLOOD UREA NITROGEN 46 mg/dL (7-20); CARBON DIOXIDE 19 mmol/L (22-30); CHLORIDE 113 mmol/L (98-107); CREATININE RESULT 3.16 mg/dL (0.52-1.25); GLUCOSE 126 mg/dL (75-110); POTASSIUM 4.6 mmol/L (3.6-5.0); SODIUM 141.1 mmol/L (137-145)
[2017-01-28] MEDS ORDERED: ASPIRIN 81 MG TABLET, ENT COATED PO SCH (10:00)
[2017-01-28] MEDS ORDERED: CARVEDILOL 12.5 MG TABLET PO SCH (10:00)
[2017-01-28] MEDS ORDERED: LEVOTHYROXINE SODIUM 0.025 MG TABLET PO SCH (10:00)
[2017-01-28] MEDS ORDERED: FUROSEMIDE INJ/PF 20 MG/2 ML SDV IV SCH (10:00)
[2017-01-28 10:43] VITALS: BP 180/82
--- NOTE | 2017-01-28 11:16 | PDOC CONSULTATION ---
Consultation Consult Date: 01/28/17 Attending physician:: HOLLY NUGENT Consult reason:: Abnormal troponin I, CHF, pericardial and pleural effusion. History of Present Illness Admission Date/PCP: 01/28/17 08:35 Patient complains of: Shortness of breath and respiratory distress History of Present Illness: Patient seen in the emergency room at approximately 9 AM. Ms MICHAEL LAWSON is a 86 year old female with underlying chronic diastolic congestive heart failure, stage IV chronic kidney disease, hypothyroidism, difficult to control blood pressure, and anemia, who presents to the emergency room for evaluation of above complaint. Patient has been discussed with emergency room physician who evaluated the patient. Patient herself is somewhat fatigued, currently on BiPAP, and as a result, her daughter, who is present at her side with her approval, provides a good bit of information concerning both acute and chronic aspects of her health care. Was seen by Dr. Kwon on the sixth for complaints of several day history of gradually increasing shortness of breath, weight gain, and lower extremity swelling. Shortness of breath was particularly noticeable with much of any exertion. Lasix doubled from 20-40 mg a day, along with increase in her clonidine. Shortness of breath became progressively worse, in particular over the last 18 hours or so. On EMS arrival at their home, room air saturation was 79% with an initial blood pressure reportedly 270/176. CPAP was applied by EMS and patient was given 0.4 mg of sublingual nitroglycerin, along with a DuoNeb. Remained in significant respiratory distress upon arrival in the emergency room , but has improved nicely, according to the emergency room physician, with change of CPAP to BiPAP, along with initiation of nitroglycerin drip and 40 mg of IV Lasix. No fever chills, chest or abdominal pain, nausea vomiting, diarrhea or dysuria. Patient and daughter states that while she is compliant with her medications, she is not as compliant with her diet. Labs and x-ray results, including pericardial effusion, were discussed by the emergency room physician with on-call cardiology, Dr. Luna. I was called about this patient at around 5:30 in the morning and then again at around 6:30. Initially I agreed for patient to be admitted to on [facility] intensive care unit but subsequently felt that patient would be better served for transfer especially since acute dialysis is not available. Also we do not have a pathologist contracting analyst today. Above history was reviewed, supplemented and confirmed. I did talk with patient and also patient's daughter and son-in-law who were at bedside. Past Medical History Cardiac Medical History: Reports: Congestive Heart Failure, Coronary Artery Disease, Hypertension Denies: DVT, Myocardial Infarction, Pulmonary Embolism Pulmonary Medical History: Denies: Asthma, Bronchitis, Chronic Obstructive Pulmonary Disease (COPD), Pneumonia, Sleep Apnea EENT Medical History: Reports: Eyes - Glasses, Ears - Partial hearing loss Denies: Throat Neurological Medical History: Denies: Hemorrhagic CVA, Ischemic CVA, Seizures Endocrine Medical History: Reports: Diabetes Mellitus Type 1, Diabetes Mellitus Type 2, Hypothyroidism Denies: Hyperthyroidism Renal/ Medical History: Reports: Chronic Kidney Disease GI Medical History: Reports: Other - "Spot" on her liver, present for years, followed as an outpatient. Denies: Cirrhosis, Gastroesophageal Reflux Disease, Hepatitis, Peptic Ulcer Disease Musculoskeltal Medical History: Reports: Arthritis - general Skin Medical History: Reports: None Psychiatric Medical History: Denies: Alcohol Dependency, Depression, General Anxiety Disorder, Substance Abuse, Tobacco Dependency Hematology: Reports: Anemia Infectious Medical History: Denies: Clostridium Difficile, Hepatitis B, Hepatitis C, Methicillin- Resistant Staph Aureus Past Surgical History Past Surgical History: Reports: Orthopedic Surgery - HERNIATED DISCS, Other - Abdominal surgery for "blockage." Denies: Hysterectomy Social History Information Source: Relative Lives with: Family Smoking Status: Unknown if Ever Smoked Frequency of Alcohol Use: None Hx Recreational Drug Use: No Hx Prescription Drug Abuse: No - Advance Directive Resuscitation Status: Full Code Surrogate healthcare decision maker:: Patient's daughter is the surrogate decision maker Family History Family History: CAD Parental Family History Reviewed: Yes Children Family History Reviewed: Yes Sibling(s) Family History Reviewed.: Yes Medication/Allergy Allergies/Adverse Reactions: No Known Allergies Allergy (Verified 01/22/16 16:38) Review of Systems Review of Systems: This is somewhat limited as patient on BiPAP therapy and is noted to be short of breath. On direct questioning patient did admit of having some tightness in the chest off and on. Patient has also noted increasing shortness of breath and bilateral pitting edema. Pedal edema is noted to be more on the right side. As noted above patient is noncompliant with dietary restrictions but claims compliance with medications. Physical Exam Vital Signs: Temp Pulse Resp BP Pulse Ox 97.9 F 14 180/82 H 100 01/28/17 10:36 01/28/17 10:36 01/28/17 10:36 01/28/17 10:36 Exam: GENERAL: Noted to be in respiratory distress. Alert and oriented x3 HEAD: Atraumatic, normocephalic. EYES: Pupils equal round and reactive to light, extraocular movements intact, sclera anicteric, conjunctiva are normal. ENT: TMs normal, nares patent, oropharynx clear without exudates. Moist mucous membranes. No oral ulcerations or bleeding gums noted NECK: supple without lymphadenopathy. Trachea is central. No cervical or axillary lymphadenopathy noted. Carotids are 2+, JVD MARKEDLY DISTENDED AND ELEVATED UP TO ANGLE OF JAW. LUNGS: Respiration seems nonlabored, no significant accessory muscle action noted. Bibasalar fine crackles and bilateral dullness noted. CHEST: Palpation of the chest wall shows no significant chest wall tenderness. No other significant abnormalities noted. HEART: [place] DRAFTER CASTINGS, No PSH, 2/6 SHAE aortic area, 1/6 powers systolic murmur mitral area , no rubs, positive S4 gallops. ABDOMEN: Soft, no significant tenderness appreciated, normoactive bowel sounds. No guarding, no rebound. No rigidity noted . No masses appreciated. EXTREMITIES: Pedal pulses are 1-2+, no calf tenderness noted. No clubbing or cyanosis.2+ pedal edema noted NEUROLOGICAL: Focused neurological exam showed no significant neurologic deficit. Normal speech, no focal weakness appreciated. Patient able to move all 4 extremities. PSYCH: Seems to have Normal mood, normal affect. Judgment and insight not checked. SKIN: No significant ecchymosis, rash, ulcerations or signs of pruritus noted. MUSCULOSKELETAL EXAM: No significant joint swelling noted. Results Laboratory Results: 01/28/17 08:42 01/28/17 01/28/17 08:42 08:42 VBG pH 7.38 VBG pCO2 31.5 L VBG HCO3 18.1 L VBG Base Excess -6.2 Sodium 141.1 Potassium 4.6 Chloride 113 H Carbon Dioxide 19 L Anion Gap 9 BUN 46 H Creatinine 3.16 H Est GFR ( Amer) 17 L Est GFR (Non-Af Amer) 14 L Glucose 126 H Calcium 9.0 01/28/17 08:42 Troponin I 0.412 EKG Comments: Low voltage precordial leads, cannot rule out electrical alternans, QS complex in V1 to V3 and small R-wave in V4. This is consistent with anteroseptal infarct age indeterminate. When compared to prior EKG from last year, T-wave inversions are new and also frontal leads have become low voltage. Impressions: Chest X-Ray 01/28/17 01:38 IMPRESSION: Small bilateral pleural effusions with bibasilar airspace opacities , may represent atelectasis or pneumonia. Mild central vascular congestion. Interval development of severe cardiomegaly, a pericardial effusion is not excludable. Chest CT 01/28/17 03:32 IMPRESSION: Moderate pericardial effusion. Moderate bilateral pleural effusions right greater than left. Stable hepatic cysts. Status: Image reviewed by me - Moderate pleural effusion bilateral and moderate pericardial effusion noted. Assessment & Plan - Diagnosis (1) Acute congestive heart failure Qualifiers: Congestive heart failure type: unspecified congestive heart failure type Qualified Code(s): I50.9 - Heart failure, unspecified Is this a current diagnosis for this admission?: Yes (3) Bilateral pleural effusion Is this a current diagnosis for this admission?: Yes (4) CKD (chronic kidney disease) stage 5, GFR less than 15 ml/min Is this a current diagnosis for this admission?: Yes (5) Elevated troponin Is this a current diagnosis for this admission?: Yes (6) Hypertensive emergency Is this a current diagnosis for this admission?: Yes (7) Respiratory distress Is this a current diagnosis for this admission?: Yes (8) Edema extremities Is this a current diagnosis for this admission?: Yes (9) Non-STEMI (non-ST elevated myocardial infarction) Is this a current diagnosis for this admission?: Yes - Notes Notes: Acute congestive heart failure: Etiology not clear possibly acute on chronic diastolic dysfunction. Possibility of systolic dysfunction cannot be ruled out. Patient has received intravenous diuretics but has not responded adequately. Currently still in mild respiratory distress. Patient has significantly dilated JVP therefore would need dialysis. Cannot rule out an element of Tamponade and effusive constrictive pericarditis although patient's blood pressure is noted to be quite high. Elevated troponin I and non-STEMI: Troponin I elevation Can be explained by severe hypertension and CHF but patient does have T-wave inversion in anterior precordial lead which are new. Patient would benefit from heart catheterization. Patient will definitely need a ischemia evaluation and patient is stabilized. Bilateral pleural effusion: Partly from CHF but could be related to effusive constrictive pericarditis, cardiac tamponade etc. Hypertensive emergency: Patient presented with extremely high blood pressure. This is better but still high. Respiratory distress: Patient was noted to be severely hypoxic. Patient currently maintaining adequate oxygenation on BiPAP therapy and noninvasive positive pressure ventilation. Lower extremity edema: This is from CHF, effusive/constrictive pericarditis etc. Patient has quite complicated medical history and in need of multispecialty consultation and intervention. Currently acute dialysis not available in this institution. Agree that patient will benefit from tertiary care transfer for removal of fluid with acute dialysis, CT surgery consultation, cardiology consultation and need for acute cardiac intervention and further cardiac workup such as heart catheterization etc may arise. Dr. Nugent has arranged for patient to be transferred to tertiary care with which I agree. I did talk with patient's daughter. They're agreeable for this transfer. I be happy to follow patient after discharge. As usual I thank Dr. Monge for the kind consultation. - Time Time Spent: 50 to 70 Minutes - CODE STATUS was discussed, patient remains full code. Surrogate decision-maker unchanged. Multiple medical problems were addressed.More than 50% of the time spent coordinating care, discussing management plans with involved caregivers. Management plans discussed with involved personnels. Medical decision making was of high complexity, patient's has multiple severe comorbidities. Medications reviewed and adjusted accordingly: Yes
[2017-01-28] MEDS ORDERED: HYDRALAZINE HCL 50 MG TABLET PO SCH (14:00)
[2017-01-28] MEDS ORDERED: CLONIDINE HCL 0.1 MG TABLET PO SCH (14:00)
== END 2017-01-28 11:23 | disposition other institution (70) ==
LOC: ER 01:24 → UNDOADMIN 06:31 → EH 06:31 → UNDOADMOB 08:35 → INTOOBSV 08:35 → EH 08:35 → ER 11:23
DX: I16.1 Hypertensive emergency (principal); I13.0 Hypertensive heart and chronic kidney disease with heart failure and stage 1 through stage 4 chronic kidney disease, or unspecified chronic kidney disease; I50.33 Acute on chronic diastolic (congestive) heart failure; N18.4 Chronic kidney disease, stage 4 (severe); E11.22 Type 2 diabetes mellitus with diabetic chronic kidney disease; I31.3 Pericardial effusion (noninflammatory); I25.10 Atherosclerotic heart disease of native coronary artery without angina pectoris; D64.9 Anemia, unspecified; D74.8 Other methemoglobinemias; Z79.899 Other long term (current) drug therapy; Z82.49 Family history of ischemic heart disease and other diseases of the circulatory system
CPT/HCPCS: 93005; 99291; 96375; 96365; 96368; 86900; 86901; 36415; 87040; 82553; 86870; 86850; 82962; 82803 ×2; 82550; 83735; 85025; 85610; 85730; 80048; 80053; 81001; 84484; 83880; 71010; 71250; 93010; 94660; A9270 ×3; J1940 ×2; J3490; J0456; J0696

== ENCOUNTER → 2017-02-07 | Outpatient (CLI) | payer MEDICARE, MEDICAID ==
[2017-02-08 09:21] LABS: HEMATOCRIT 29.8 % (36.0-47.0); HEMOGLOBIN 9.6 g/dL (12.0-15.5); MEAN CORPUSCULAR HEMOGLOBIN 30.4 pg (27.0-33.4); MEAN CORPUSCULAR HGB CONC 32.1 g/dL (32.0-36.0); MEAN CORPUSCULAR VOLUME 95 fl (80-97); RED BLOOD COUNT 3.15 10^6/uL (3.72-5.28); RED CELL DISTRIBUTION WIDTH 14.2 % (11.5-14.0); WHITE BLOOD COUNT 5.2 10^3/uL (4.0-10.5)
[2017-02-08 11:17] LABS: CALCIUM 9.2 mg/dL (8.4-10.2); GLUCOSE 113 mg/dL (75-110)
[2017-02-08 11:18] LABS: BLOOD UREA NITROGEN 52 mg/dL (7-20); CARBON DIOXIDE 19 mmol/L (22-30); CHLORIDE 109 mmol/L (98-107); CREATININE RESULT 3.03 mg/dL (0.52-1.25); POTASSIUM 5.2 mmol/L (3.6-5.0)
[2017-02-08 11:19] LABS: ALANINE AMINOTRANSFERASE 21 U/L (9-52); ALKALINE PHOSPHATASE 51 U/L (38-126); ANION GAP 8 (5-19); ASPARTATE AMINO TRANSFERASE 18 U/L (14-36); BILIRUBIN,DIRECT 0.5 mg/dL (0.0-0.4); BILIRUBIN,TOTAL 0.6 mg/dL (0.2-1.3); SODIUM 135.9 mmol/L (137-145); TOTAL PROTEIN 5.7 g/dL (6.3-8.2)
== END ==
LOC: LAB 12:19
PROVIDERS: ATTEND Internal Medicine Nephrology
DX: N18.4 Chronic kidney disease, stage 4 (severe) (principal); R80.9 Proteinuria, unspecified; D64.9 Anemia, unspecified
CPT/HCPCS: 36415; 80053; 85027

== ENCOUNTER → 2017-02-13 | Outpatient (CLI) | payer MEDICARE, MEDICAID ==
[2017-02-13 11:26] LABS: HEMOGLOBIN 10.1 g/dL (12.0-15.5); HGB HCT DIFFERENCE -0.7; MEAN CORPUSCULAR HGB CONC 32.7 g/dL (32.0-36.0); MEAN CORPUSCULAR VOLUME 95 fl (80-97); RED BLOOD COUNT 3.27 10^6/uL (3.72-5.28); RED CELL DISTRIBUTION WIDTH 14.8 % (11.5-14.0); WHITE BLOOD COUNT 6.2 10^3/uL (4.0-10.5)
[2017-02-13 11:44] LABS: ANION GAP 11 (5-19); BLOOD UREA NITROGEN 48 mg/dL (7-20); CALCIUM 9.1 mg/dL (8.4-10.2); CARBON DIOXIDE 20 mmol/L (22-30); CHLORIDE 107 mmol/L (98-107); CREATININE RESULT 3.37 mg/dL (0.52-1.25); GLUCOSE 122 mg/dL (75-110); POTASSIUM 4.6 mmol/L (3.6-5.0); SODIUM 137.8 mmol/L (137-145)
== END ==
LOC: LAB 11:12
PROVIDERS: ATTEND Internal Medicine Nephrology
DX: N18.4 Chronic kidney disease, stage 4 (severe) (principal); D64.9 Anemia, unspecified; R80.9 Proteinuria, unspecified; I50.9 Heart failure, unspecified
CPT/HCPCS: 36415; 80048; 82728; 83540; 83550; 85027

== ENCOUNTER → 2017-03-19 | Outpatient (CLI) | payer MEDICARE, MEDICAID ==
[2017-03-19 12:38] LABS: HEMATOCRIT 37.2 % (36.0-47.0); HEMOGLOBIN 12.3 g/dL (12.0-15.5); HGB HCT DIFFERENCE -0.3; MEAN CORPUSCULAR HEMOGLOBIN 30.8 pg (27.0-33.4); MEAN CORPUSCULAR HGB CONC 32.9 g/dL (32.0-36.0); MEAN CORPUSCULAR VOLUME 93 fl (80-97); RED BLOOD COUNT 3.98 10^6/uL (3.72-5.28); RED CELL DISTRIBUTION WIDTH 14.3 % (11.5-14.0); WHITE BLOOD COUNT 5.6 10^3/uL (4.0-10.5)
[2017-03-19 13:25] LABS: ANION GAP 11 (5-19); BLOOD UREA NITROGEN 50 mg/dL (7-20); CALCIUM 9.4 mg/dL (8.4-10.2); CARBON DIOXIDE 24 mmol/L (22-30); CHLORIDE 103 mmol/L (98-107); CREATININE RESULT 3.08 mg/dL (0.52-1.25); GLUCOSE 109 mg/dL (75-110); PHOSPHORUS 3.9 mg/dL (2.5-4.5); SODIUM 138.1 mmol/L (137-145)
== END ==
LOC: LAB 12:11
PROVIDERS: ATTEND Internal Medicine Nephrology
DX: N18.4 Chronic kidney disease, stage 4 (severe) (principal); E87.5 Hyperkalemia; I50.9 Heart failure, unspecified; D64.9 Anemia, unspecified
CPT/HCPCS: 36415; 80048; 83970; 84100; 85027

== ENCOUNTER → 2017-05-14 | Outpatient (CLI) | payer MEDICARE, MEDICAID ==
[2017-05-14 12:15] LABS: HEMATOCRIT 37.2 % (36.0-47.0); HEMOGLOBIN 12.7 g/dL (12.0-15.5); HGB HCT DIFFERENCE 0.9; MEAN CORPUSCULAR HEMOGLOBIN 31.3 pg (27.0-33.4); MEAN CORPUSCULAR HGB CONC 34.1 g/dL (32.0-36.0); MEAN CORPUSCULAR VOLUME 92 fl (80-97); RED BLOOD COUNT 4.05 10^6/uL (3.72-5.28); RED CELL DISTRIBUTION WIDTH 15.4 % (11.5-14.0)
== END ==
LOC: OD 11:17
PROVIDERS: ATTEND Internal Medicine Nephrology
DX: D64.9 Anemia, unspecified (principal)
CPT/HCPCS: 36415; 82728; 83540; 83550; 85027

== ENCOUNTER → 2017-06-06 | Outpatient (CLI) | payer MEDICARE, MEDICAID ==
[2017-06-06 12:19] LABS: HEMOGLOBIN 12.1 g/dL (12.0-15.5); HGB HCT DIFFERENCE -0.7; MEAN CORPUSCULAR HEMOGLOBIN 29.8 pg (27.0-33.4); MEAN CORPUSCULAR HGB CONC 32.6 g/dL (32.0-36.0); MEAN CORPUSCULAR VOLUME 91 fl (80-97); RED BLOOD COUNT 4.05 10^6/uL (3.72-5.28); RED CELL DISTRIBUTION WIDTH 14.2 % (11.5-14.0); WHITE BLOOD COUNT 5.8 10^3/uL (4.0-10.5)
[2017-06-06 12:40] LABS: ANION GAP 9 (5-19); BLOOD UREA NITROGEN 52 mg/dL (7-20); CALCIUM 9.6 mg/dL (8.4-10.2); CARBON DIOXIDE 26 mmol/L (22-30); CHLORIDE 104 mmol/L (98-107); CREATININE RESULT 3.09 mg/dL (0.52-1.25); GLUCOSE 151 mg/dL (75-110); PHOSPHORUS 3.9 mg/dL (2.5-4.5); POTASSIUM 4.2 mmol/L (3.6-5.0); SODIUM 139.4 mmol/L (137-145)
== END ==
LOC: LAB 12:08
PROVIDERS: ATTEND Internal Medicine Nephrology
DX: N18.4 Chronic kidney disease, stage 4 (severe) (principal); D64.9 Anemia, unspecified; E11.9 Type 2 diabetes mellitus without complications; R80.9 Proteinuria, unspecified
CPT/HCPCS: 36415; 80048; 83970; 84100; 85027

== ENCOUNTER → 2017-08-27 | Outpatient (CLI) | payer MEDICARE, MEDICAID ==
[2017-08-27 12:07] LABS: HEMATOCRIT 35.5 % (36.0-47.0); HGB HCT DIFFERENCE 0.5; MEAN CORPUSCULAR HEMOGLOBIN 30.5 pg (27.0-33.4); MEAN CORPUSCULAR HGB CONC 33.9 g/dL (32.0-36.0); MEAN CORPUSCULAR VOLUME 90 fl (80-97); RED BLOOD COUNT 3.95 10^6/uL (3.72-5.28); RED CELL DISTRIBUTION WIDTH 15.2 % (11.5-14.0); WHITE BLOOD COUNT 6.1 10^3/uL (4.0-10.5)
[2017-08-27 12:47] LABS: ANION GAP 12 (5-19); BLOOD UREA NITROGEN 47 mg/dL (7-20); CARBON DIOXIDE 24 mmol/L (22-30); CHLORIDE 104 mmol/L (98-107); CREATININE RESULT 3.01 mg/dL (0.52-1.25); GLUCOSE 157 mg/dL (75-110); MAGNESIUM 2.2 mg/dL (1.6-2.3); PHOSPHORUS 3.9 mg/dL (2.5-4.5); POTASSIUM 4.2 mmol/L (3.6-5.0); SODIUM 139.8 mmol/L (137-145)
== END ==
LOC: LAB 11:44
PROVIDERS: ATTEND Internal Medicine Nephrology
DX: N18.5 Chronic kidney disease, stage 5 (principal); D64.9 Anemia, unspecified; I50.9 Heart failure, unspecified; R80.9 Proteinuria, unspecified
CPT/HCPCS: 36415; 80048; 83735; 83970; 84100; 85027

== ENCOUNTER 2017-10-01 09:46 | Day surgery (SDC) | payer MEDICARE, MEDICAID ==
--- NOTE | 2017-09-26 10:24 | EKG REPORT ---
SEVERITY:- ABNORMAL ECG - SINUS RHYTHM LOW VOLTAGE IN FRONTAL LEADS PROBABLE LEFT VENTRICULAR HYPERTROPHY : Confirmed by: Debbi Luna 26-Sep-2017 10:23:47
[2017-09-26 10:58] LABS: HEMATOCRIT 36.2 % (36.0-47.0); HEMOGLOBIN 12.3 g/dL (12.0-15.5); MEAN CORPUSCULAR HEMOGLOBIN 30.7 pg (27.0-33.4); MEAN CORPUSCULAR HGB CONC 33.9 g/dL (32.0-36.0); MEAN CORPUSCULAR VOLUME 91 fl (80-97); PLATELET COUNT 206 10^3/uL (150-450); RED CELL DISTRIBUTION WIDTH 14.8 % (11.5-14.0); WHITE BLOOD COUNT 7.6 10^3/uL (4.0-10.5)
--- NOTE | 2017-09-26 11:20 | RADIOLOGY REPORT (SQ) ---
EXAM DESCRIPTION: CHEST PA/LATERAL COMPLETED DATE/TIME: 09/26/2017 10:54 am REASON FOR STUDY: PRE OP COMPARISON: 2017. TECHNIQUE: Frontal and lateral radiographic views of the chest acquired. NUMBER OF VIEWS: Two view. LIMITATIONS: None. FINDINGS: LUNGS AND PLEURA: Small bilateral pleural effusions, chronic or recurrent. Lung arguelles ot herwise hyperinflated but generally clear. MEDIASTINUM AND HILAR STRUCTURES: Stable contours. HEART AND VASCULAR STRUCTURES: Cardiac enlargement. BONES: No acute findings. HARDWARE: None in the chest. OTHER: No other significant finding. IMPRESSION: 1. Small bilateral pleural effusions with cardiomegaly. Similar appearance to priors. Findings suggest mild congestive failure, perhaps chronic. TECHNICAL DOCUMENTATION: JOB ID: [id number] [employer]- All Rights Reserved
[2017-09-26 11:23] LABS: ANION GAP 12 (5-19); BLOOD UREA NITROGEN 55 mg/dL (7-20); CALCIUM 10.1 mg/dL (8.4-10.2); CARBON DIOXIDE 27 mmol/L (22-30); CHLORIDE 104 mmol/L (98-107); GLUCOSE 107 mg/dL (75-110); POTASSIUM 4.3 mmol/L (3.6-5.0); SODIUM 143.4 mmol/L (137-145)
[~2017-10-01 09:46] MED LIST: BACITRACIN INJ 50,000 UNIT VIAL ONE; BUPIVACAINE HCL 0.25 % INJ/PF (2.5 MG/1 ML) 30 ML VIAL ONE; CEFAZOLIN 1 GM/D5W RTU 1 GM/50 ML RTUPB IV PRN; LIDOCAINE 0.5% INJ-PF (5 MG/ML) 50 ML SDV ONE; LIDOCAINE 0.5% INJ-PF (5 MG/ML) 50 ML SDV SUBCUT PRN; NORMAL SALINE 1000 ML (RENAL PATIENTS) IV PRN; THROMBIN (BOVINE) TOPICAL 5000 UNIT VIAL ONE
[2017-10-01] MEDS ORDERED: NITROGLYCERIN/D5W 50 MG/250 ML RTUINJ IV ONE (10:00)
[2017-10-01] MEDS ORDERED: FENTANYL CITRATE INJ/PF 100 MCG/2 ML AMPUL ONE (10:17)
[2017-10-01] MEDS ORDERED: MIDAZOLAM 2 MG/2 ML INJ ONE (10:17)
[2017-10-01] MEDS ORDERED: ONDANSETRON HCL INJ/PF 4 MG/2 ML SDV ONE (10:18)
[2017-10-01] MEDS ORDERED: PROPOFOL INJ 200 MG/20 ML VIAL IV ONE ×2 (10:18→10:20)
[2017-10-01] MEDS ORDERED: KETAMINE HCL INJ 500 MG/10 ML VIAL ONE (10:20)
[2017-10-01] MEDS ORDERED: LIDOCAINE 2% INJ-PF (20 MG/ML) 10 ML AMPUL ONE (10:25)
[2017-10-01 10:45] LABS: POTASSIUM 3.9 mmol/L (3.6-5.0)
[2017-10-01] MEDS ORDERED: FENTANYL CITRATE INJ/PF 100 MCG/2 ML AMPUL IV PRN ×2 (11:42)
[2017-10-01] MEDS ORDERED: DIPHENHYDRAMINE HCL 50 MG/ML VIAL IV PRN (11:42)
[2017-10-01] MEDS ORDERED: PROMETHAZINE HCL INJ 25 MG/1 ML VIAL IV PRN (11:42)
[2017-10-01] MEDS: HEPARIN SOD (PORCINE) 1,000 UNIT/ML 10 ML VIAL ONE ×2 (12:15→13:13)
[2017-10-01] MEDS: LIDOCAINE 1% INJ-PF (10 MG/ML) 30 ML SDV ONE ×2 (12:15→13:11)
--- NOTE | 2017-10-01 12:50 | Operative Report ---
Operative Report DATE OF SURGERY: 10/01/17 PREOPERATIVE DIAGNOSIS: 1. End-stage renal disease. 2. Thyroid disease. 3. Diabetes mellitus. POSTOPERATIVE DIAGNOSIS: 1. End-stage renal disease. 2. Thyroid disease. 3. Diabetes mellitus. OPERATION: Insertion of brachiocephalic fistula right arm. SURGEON: MELISA DEAN FABRIC MACHINE OPERATOR: None ANESTHESIA: LMAC TISSUE REMOVED OR ALTERED: Not applicable. COMPLICATIONS: None. ESTIMATED BLOOD LOSS: 5 mL. INTRAOPERATIVE FINDINGS: Of a reasonable brachial artery, both 3 mm in diameter , fairly supple wall. The cephalic vein was surprisingly adequate easily accepting a 3.5 mm coronary dilator up to at least 15 cm. Post insertion, satisfactory thrill and bruit. Satisfactory Doppler signals with slurred waveform in the cephalad brachial, multiphasic distal brachial. Continuous murmur in the cephalic vein. PROCEDURE: Operative Report PROCEDURE: After reviewing the procedure with the patient, [she] was taken to the operating room. The patient was sedated and the [right upper extremity] prepared with chlorhexidine and draped out with sterile linen. After the "" universal timeout", in which it was verified that the patient [received IV antibiotics] the procedure commenced. The sterilely sheathed ultrasound probe was used to evaluate the left venous and arterial systems, pertinent to the previously done vein mapping. The cephalic vein seemed adequate and is cephalic to brachial fistula was therefore plan. Local anesthesia was infiltrated and a transverse incision made over the upper forearm, near the antecubital fossa. Dissection proceeded through the subcutaneous tissues down to the cephalic vein. This was dissected out proximally and distally for about 2 cm. Likewise major branches. The Bicipital aponeurosis was now incised longitudinally and the brachial artery dissected out for a distance of about 1.5 cm. Rubber loops were placed on either end. The patient was given 2500 units of heparin intravenously. The deep branch of the cephalic vein was transected and irrigated with heparinized solution. The distal branches were clipped Coronary dilators were accepted [ up to 3.5 mm]. The artery was controlled proximally and distally with rubber loops. An arteriotomy approximately [1 cm] in length was made, the artery was irrigated proximally and distally with heparinized solution. The transected vein was now spatulated [using the branch patch technique], it was then anastomosed end to end to side into the brachial artery. This was done using a continuous suture of 6-0 Prolene. Controls of the fistula were now released and it was analyzed using a Doppler probe. Hemostasis was secured once optimal function was assured, the wound was irrigated with antibiotic containing solution and closed. Closure was done using interrupted 3-0 PDS for the subcutaneous tissues. The skin was closed using a continuous subcutaneous suture of 4-0 Monocryl which was reinforced with Steri-Strips over benzoin. I then left the operative field and returned with a stethoscope covered with a sterile Tegaderm dressing. This allowed external auscultation of the fistula. Auscultation was [satisfactory]. The procedure was concluded by applying a Kerlix dressing over the surgical site. DICTATING PHYSICIAN: MELISA MÉNDEZ M.D.
[2017-10-01 14:37] VITALS: BP 181/78
== END 2017-10-01 14:20 | disposition home or self-care (01) ==
LOC: OROUT 09:46
PROVIDERS: ATTEND Surgery
PROC: 05SD0ZZ Reposition Right Cephalic Vein, Open Approach (ICD-10-PCS; principal; 2017-10-01 12:00)
DX: E11.22 Type 2 diabetes mellitus with diabetic chronic kidney disease (principal); N18.6 End stage renal disease; E03.9 Hypothyroidism, unspecified; I50.9 Heart failure, unspecified; M19.90 Unspecified osteoarthritis, unspecified site; D64.9 Anemia, unspecified; Z79.899 Other long term (current) drug therapy
CPT/HCPCS: 36821; 93005; 36415 ×2; 82947; 84132; 85027; 80048; 71046; 93010; J2250; J3490 ×5; J0690; J3010; J1644; J2405; J2704; 1844

== ENCOUNTER → 2017-10-03 | Outpatient (CLI) | payer MEDICARE, MEDICAID ==
[2017-10-03 10:38] LABS: HEMATOCRIT 36.3 % (36.0-47.0); HEMOGLOBIN 11.9 g/dL (12.0-15.5); MEAN CORPUSCULAR VOLUME 91 fl (80-97); PLATELET COUNT 197 10^3/uL (150-450); RED BLOOD COUNT 3.98 10^6/uL (3.72-5.28); RED CELL DISTRIBUTION WIDTH 14.3 % (11.5-14.0); WHITE BLOOD COUNT 6.7 10^3/uL (4.0-10.5)
[2017-10-03 10:59] LABS: ANION GAP 10 (5-19); BLOOD UREA NITROGEN 54 mg/dL (7-20); CALCIUM 9.7 mg/dL (8.4-10.2); CARBON DIOXIDE 27 mmol/L (22-30); CHLORIDE 104 mmol/L (98-107); GLUCOSE 163 mg/dL (75-110); PHOSPHORUS 4.3 mg/dL (2.5-4.5); POTASSIUM 4.1 mmol/L (3.6-5.0); SODIUM 140.8 mmol/L (137-145)
== END ==
LOC: LAB 10:15
PROVIDERS: ATTEND Internal Medicine Nephrology
DX: I12.0 Hypertensive chronic kidney disease with stage 5 chronic kidney disease or end stage renal disease (principal); N18.5 Chronic kidney disease, stage 5; D64.9 Anemia, unspecified; I50.9 Heart failure, unspecified
CPT/HCPCS: 36415; 80048; 83970; 84100; 85027

== ENCOUNTER → 2017-11-02 | Outpatient (CLI) | payer MEDICARE, MEDICAID ==
[2017-11-02 12:01] LABS: HEMATOCRIT 35.8 % (36.0-47.0); HEMOGLOBIN 11.8 g/dL (12.0-15.5); MEAN CORPUSCULAR HEMOGLOBIN 29.5 pg (27.0-33.4); MEAN CORPUSCULAR VOLUME 90 fl (80-97); PLATELET COUNT 187 10^3/uL (150-450); RED CELL DISTRIBUTION WIDTH 14.3 % (11.5-14.0); WHITE BLOOD COUNT 6.4 10^3/uL (4.0-10.5)
[2017-11-02 12:17] LABS: ANION GAP 10 (5-19); BLOOD UREA NITROGEN 65 mg/dL (7-20); CALCIUM 9.8 mg/dL (8.4-10.2); CARBON DIOXIDE 25 mmol/L (22-30); CHLORIDE 104 mmol/L (98-107); GLUCOSE 192 mg/dL (75-110); PHOSPHORUS 3.9 mg/dL (2.5-4.5); POTASSIUM 3.7 mmol/L (3.6-5.0); SODIUM 139.1 mmol/L (137-145)
== END ==
LOC: LAB 11:42
PROVIDERS: ATTEND Internal Medicine Nephrology
DX: N18.5 Chronic kidney disease, stage 5 (principal); D64.9 Anemia, unspecified; I50.9 Heart failure, unspecified; R80.9 Proteinuria, unspecified
CPT/HCPCS: 36415; 80048; 83970; 84100; 85027

== ENCOUNTER → 2017-11-08 | Outpatient (CLI) | payer MEDICARE, MEDICAID ==
--- NOTE | 2017-11-08 11:12 | RADIOLOGY REPORT (SQ) ---
EXAM DESCRIPTION: CHEST PA/LATERAL COMPLETED DATE/TIME: 11/08/2017 10:57 am REASON FOR STUDY: SHORTNESS OF BREATH;CHRONIC KIDNEY DISEASE STAGE 5 COMPARISON: 09/26/2017 EXAM PARAMETERS: NUMBER OF VIEWS: two views TECHNIQUE: Digital Frontal and Lateral radiographic views of the chest acquired. RADIATION DOSE: NA LIMITATIONS: none FINDINGS: LUNGS AND PLEURA: The previously described small bilateral pleural effusions appear essent ially unchanged. An oblique linear density is identified in right lower lung feel most consistent wi th atelectatic changes. Remaining lung arguelles are clear. MEDIASTINUM AND HILAR STRUCTURES: No masses or contour abnormalities. HEART AND VASCULAR STRUCTURES: Cardiac silhouette remains enlarged and is unchanged in configuration. Tortuous calcified thoracic aorta is again identified. BONES: Thoracolumbar scoliosis convex to the right is again identified with associated degenerative c hanges. HARDWARE: None in the chest. OTHER: No other significant finding. IMPRESSION: No significant interval change. Findings as noted above TECHNICAL DOCUMENTATION: JOB ID: [id number] [employer]- All Rights Reserved
== END ==
LOC: OD 10:30
PROVIDERS: ATTEND Internal Medicine Nephrology
DX: N18.5 Chronic kidney disease, stage 5 (principal); R06.02 Shortness of breath
CPT/HCPCS: 71046

== ENCOUNTER → 2017-11-20 | Outpatient (CLI) | payer MEDICARE, MEDICAID ==
[2017-11-20 09:16] LABS: HEMATOCRIT 34.7 % (36.0-47.0); HEMOGLOBIN 11.5 g/dL (12.0-15.5); MEAN CORPUSCULAR HEMOGLOBIN 29.4 pg (27.0-33.4); MEAN CORPUSCULAR VOLUME 89 fl (80-97); PLATELET COUNT 196 10^3/uL (150-450); RED BLOOD COUNT 3.89 10^6/uL (3.72-5.28); RED CELL DISTRIBUTION WIDTH 14.5 % (11.5-14.0); WHITE BLOOD COUNT 7.3 10^3/uL (4.0-10.5)
[2017-11-20 09:31] LABS: ANION GAP 10 (5-19); BLOOD UREA NITROGEN 65 mg/dL (7-20); CALCIUM 9.8 mg/dL (8.4-10.2); CARBON DIOXIDE 28 mmol/L (22-30); CHLORIDE 103 mmol/L (98-107); GLUCOSE 185 mg/dL (75-110); POTASSIUM 3.8 mmol/L (3.6-5.0)
== END ==
LOC: LAB 08:46
PROVIDERS: ATTEND Internal Medicine Nephrology
DX: I12.0 Hypertensive chronic kidney disease with stage 5 chronic kidney disease or end stage renal disease (principal); N18.5 Chronic kidney disease, stage 5; D64.9 Anemia, unspecified; I50.9 Heart failure, unspecified
CPT/HCPCS: 36415; 80048; 83735; 85027

== ENCOUNTER → 2017-11-23 | Outpatient (CLI) | payer MEDICARE, MEDICAID ==
[2017-11-23 13:00] LABS: ANION GAP 11 (5-19); BLOOD UREA NITROGEN 70 mg/dL (7-20); CALCIUM 9.3 mg/dL (8.4-10.2); CARBON DIOXIDE 24 mmol/L (22-30); CHLORIDE 104 mmol/L (98-107); GLUCOSE 176 mg/dL (75-110); POTASSIUM 4.1 mmol/L (3.6-5.0); SODIUM 139.1 mmol/L (137-145)
[2017-11-24 07:44] LABS: HEPATITIS C VIRUS AB <0.1 s/co ratio (0.0-0.9); HEPATITS B SURFACE ANTIGEN Negative (Negative)
[2017-11-24 12:31] LABS: HEPATITIS B CORE AB TOT Negative (Negative)
== END ==
LOC: OD 11:30
PROVIDERS: ATTEND Internal Medicine Nephrology
DX: N18.5 Chronic kidney disease, stage 5 (principal); Z11.59 Encounter for screening for other viral diseases; D64.9 Anemia, unspecified; R80.9 Proteinuria, unspecified
CPT/HCPCS: 36415; 80048; 86704; 86803; 86804; 87340

== ENCOUNTER 2017-12-03 12:13 | Day surgery (SDC) | payer MEDICARE, MEDICAID ==
[2017-12-03] MEDS ORDERED: LIDOCAINE 0.5% INJ-PF (5 MG/ML) 50 ML SDV ONE (13:01)
[2017-12-03] MEDS ORDERED: BUPIVACAINE HCL 0.25 % INJ/PF (2.5 MG/1 ML) 30 ML VIAL ONE (13:01)
[2017-12-03] MEDS ORDERED: BACITRACIN INJ 50,000 UNIT VIAL ONE (13:01)
[2017-12-03 13:07] LABS: HEMATOCRIT 31.9 % (36.0-47.0); HEMOGLOBIN 10.7 g/dL (12.0-15.5); MEAN CORPUSCULAR HEMOGLOBIN 29.7 pg (27.0-33.4); MEAN CORPUSCULAR HGB CONC 33.5 g/dL (32.0-36.0); MEAN CORPUSCULAR VOLUME 89 fl (80-97); PLATELET COUNT 203 10^3/uL (150-450); RED CELL DISTRIBUTION WIDTH 14.6 % (11.5-14.0); WHITE BLOOD COUNT 7.4 10^3/uL (4.0-10.5)
[2017-12-03] MEDS ORDERED: FENTANYL CITRATE INJ/PF 100 MCG/2 ML AMPUL ONE (13:11)
[2017-12-03] MEDS ORDERED: KETAMINE HCL INJ 500 MG/10 ML VIAL ONE (13:11)
[2017-12-03] MEDS ORDERED: ONDANSETRON HCL INJ/PF 4 MG/2 ML SDV ONE ×2 (13:12→15:57)
[2017-12-03] MEDS ORDERED: PROPOFOL INJ 200 MG/20 ML VIAL IV ONE (13:12)
[2017-12-03] MEDS ORDERED: MIDAZOLAM 2 MG/2 ML INJ ONE (13:12)
[2017-12-03 13:15] LABS: INTERNATIONAL RATION (INR) 0.93; PROTHROMBIN TIME 13.1 SEC (11.4-15.4)
--- NOTE | 2017-12-03 13:15 | EKG REPORT ---
SEVERITY:- ABNORMAL ECG - SINUS RHYTHM PROBABLE LEFT VENTRICULAR HYPERTROPHY : Confirmed by: Elijah Lewis MD 03-Dec-2017 13:15:00
[2017-12-03 13:16] LABS: PARTIAL THROMBOPLASTIN TIME 34.1 SEC (23.5-35.8)
[2017-12-03] MEDS ORDERED: LIDOCAINE 2% INJ-PF (20 MG/ML) 10 ML AMPUL ONE (13:18)
[2017-12-03 13:29] LABS: ANION GAP 8 (5-19); BLOOD UREA NITROGEN 56 mg/dL (7-20); CALCIUM 9.7 mg/dL (8.4-10.2); CARBON DIOXIDE 27 mmol/L (22-30); CHLORIDE 104 mmol/L (98-107); GLUCOSE 114 mg/dL (75-110); SODIUM 138.7 mmol/L (137-145)
[2017-12-03] MEDS ORDERED: MORPHINE SULFATE 10 MG/ML INJ IV PRN (13:38)
[2017-12-03] MEDS ORDERED: MEPERIDINE HCL/PF INJ 25 MG/1 ML DISP.SYRIN IV PRN (13:38)
[2017-12-03] MEDS ORDERED: OXYCODONE-ACETAMINOPHEN 5-325 MG TABLET PO PRN ×2 (13:38)
[2017-12-03] MEDS ORDERED: FENTANYL CITRATE INJ/PF 100 MCG/2 ML AMPUL IV PRN ×3 (13:38)
[2017-12-03] MEDS ORDERED: DIPHENHYDRAMINE HCL 50 MG/ML VIAL IV PRN (13:38)
[2017-12-03] MEDS ORDERED: PROMETHAZINE HCL INJ 25 MG/1 ML VIAL IV PRN ×2 (13:38)
[2017-12-03] MEDS ORDERED: CEFAZOLIN 1 GM/D5W RTU 1 GM/50 ML RTUPB IV ONE (13:43)
--- NOTE | 2017-12-03 15:04 | Discharge Summary ---
Discharge Summary (SDC) - Discharge Final Diagnosis: #1 malfunctioning AV fistula right brachiocephalic. 2. End-stage renal disease on hemodialysis. 3. Diabetes mellitus type 2. 4. Hypertension. Date of Surgery: 12/03/17 Discharge Date: 12/03/17 Condition: Fair Treatment or Instructions: Discharge home [after recovery per ASU criteria]. Diet , [renal],as tolerated, when fully awake advance as tolerated. Activities within moderation encouraged. Follow up in my office by appointment in about [1 week]. Call for appointment. Leave wounds [covered], [keep clean and dry, until office visit in 1 week]. Hold of on school/work [until evaluation in office]. Meds per med rec. May shower [in 48 hrs], [try to keep operated area as dry as possible]. Referrals: ALVARO CAMARA MD [Primary Care Provider] - Discharge Diet: As Tolerated Respiratory Treatments at Home: Deep Breathing/Coughing Discharge Activity: Activity As Tolerated Report the Following to Your Physician Immediately: Shortness of Breath, Unusual Bleeding
--- NOTE | 2017-12-03 15:07 | Operative Report ---
Operative Report DATE OF SURGERY: 12/03/17 PREOPERATIVE DIAGNOSIS: #1 malfunctioning AV fistula right brachiocephalic. 2. End-stage renal disease on hemodialysis. 3. Diabetes mellitus type 2. 4. Hypertension. POSTOPERATIVE DIAGNOSIS: #1 malfunctioning AV fistula right brachiocephalic. 2. End-stage renal disease on hemodialysis. 3. Diabetes mellitus type 2. 4. Hypertension. OPERATION: 1. Ultrasound evaluation of the right internal jugular vein. 2. Insertion of PermCath via real-time ultrasound-guided access in the right internal jugular vein. 3. Angiogram and interpretation. SURGEON: MELISA Alston 1ST HAZARDOUS WASTE MANAGEMENT SPECIALIST: None. ANESTHESIA: LMAC TISSUE REMOVED OR ALTERED: Not applicable. COMPLICATIONS: None. ESTIMATED BLOOD LOSS: 5 mL. INTRAOPERATIVE FINDINGS: Of a satisfactory right internal jugular vein to support permacatheter. Satisfactory and safe axis on ultrasound guidance. Good position with the tip right down in the atrial pool. Contrast shows smooth flow of contrast through the right atrium, ventricle and pulmonary outflow tract. PROCEDURE: After obtaining informed consent, the patient was taken to the operating room and positioned supine. The [right neck] and chest were prepared with chlorhexidine and draped out with sterile linen. After the " universal timeout ", in which it was verified that the patient continued to receive antibiotic, the procedure commenced. A steriley sheathed ultrasound probe was used to evaluate the [right internal jugular] vein. Local anesthesia was infiltrated adjacent to the probe. Access into the [right internal jugular] vein was obtained using a micropuncture needle, followed by micropuncture wire and then a micropuncture catheter. This was followed by introduction of a 0.035 guidewire the tip of which was placed down into the inferior vena cava . A 23 cm long PermCath was now positioned over the chest and an exit site marked and locally anesthetized ,the catheter was placed between the 2 incisions. Proximally, the catheter was now positioned using a peel-away sheath, after dilation. Easy ingress of heparinized solution and egress of blood obtained through both ports. A completion angiogram was done by injecting contrast. The findings were as dictated. The neck incision was now closed using interrupted 3-0 PDS to the subcutaneous tissues, the catheter was anchored at the exit site using 3-0 PDS. A Biopatch device was now placed adjacent to the catheter. Dressings were applied and the procedure concluded. Exposure time: [0.2 minutes]. Exposure: 3.59 Darlene voss Contrast amount: [10 mL] of Xveemj-H-089 low osmolality. Copies of the dictated operative report for Dr. Melisa Alston MD.concluded. Copies of the dictated operative report for Dr. Melisa Alston MD.
--- NOTE | 2017-12-03 15:11 | PDOC H&P ---
General Chief Complaint: The patient is admitted for insertion of a permacatheter. Her established right arm AV fistula is proved difficult access. - Current Medications/Allergies Home Medications: Amlodipine Besylate 10 mg PO BID 09/26/17 Aspirin [Aspirin EC] 81 mg PO DAILY 09/26/17 Calcitriol 1 cap PO DAILY 09/26/17 Carvedilol [Coreg 25 mg Tablet] 1 tab PO BID 09/26/17 Clonidine HCl 0.1 mg PO TID 09/26/17 Ferrous Sulfate 325 mg PO DAILY 09/26/17 Furosemide [Lasix 40 mg Tablet] 40 mg PO BID 09/26/17 Levothyroxine Sodium [Synthroid 0.025 mg Tablet] 25 mcg PO DAILY 09/26/17 Allergies/Adverse Reactions: No Known Allergies Allergy (Verified 12/03/17 13:00) Past Medical History Cardiac Medical History: Reports: Congestive Heart Failure, Coronary Artery Disease, Hypertension - ON MEDS Denies: DVT, Myocardial Infarction, Pulmonary Embolism Pulmonary Medical History: Denies: Asthma, Bronchitis, Chronic Obstructive Pulmonary Disease (COPD), Pneumonia, Sleep Apnea Neurological Medical History: Denies: Seizures Endocrine Medical History: Reports: Diabetes Mellitus Type 1, Diabetes Mellitus Type 2, Hypothyroidism Denies: Hyperthyroidism GI Medical History: Denies: Cirrhosis, Gastroesophageal Reflux Disease, Hepatitis Musculoskeltal Medical History: Reports: Arthritis - GENERALIZED Psychiatric Medical History: Denies: Depression Hematology: Reports: Anemia Infectious Medical History: Denies: Clostridium Difficile, Methicillin-Resistant Staph Aureus Past Surgical History Past Surgical History: Reports: Orthopedic Surgery - HERNIATED DISCS, Other - Abdominal surgery for "blockage." Denies: Hysterectomy Family History Family History: CAD Parental Family History Reviewed: No Children Family History Reviewed: No Sibling(s) Family History Reviewed.: No Social History Smoking Status: Never Smoker Frequency of Alcohol Use: None Hx Recreational Drug Use: No Hx Prescription Drug Abuse: No Physical Exam Vital Signs: Temp Pulse Resp BP Pulse Ox 98.7 F 69 16 149/70 H 100 12/03/17 12:56 12/03/17 12:56 12/03/17 12:56 12/03/17 12:56 12/03/17 12:56 Intake & Output 12/02/17 12/03/17 12/04/17 06:59 06:59 06:59 Intake Total 0 Balance 0 Weight 55 kg Additional comments: Constitutional: Well-developed well-nourished -[place] lady. No apparent acute distress. Eyes: Mucous membranes pink and moist, pupils equal and reactive to light. Conjunctiva normal. Cornea normal. Wears spectacles. ENT: Hearing grossly normal. External pinna normal to inspection. Teeth missing. Tongue normal to inspection. Cardiac: Heart sounds 1 and 2 normal. Respiratory breath sounds are present bilaterally, normal. Normal respiratory effort. Psychiatric: Judgment, memory, insight seem normal. Mood is pleasant and appropriate. Extremities: Upper extremities show normal range of movement. Pulses present noted to the radial arteries. Capillary refill normal. No cyanosis noted. No muscle wasting noted. Right arm brachiocephalic fistula in place. Some bruising. Impression/Plan Plan: The patient is admitted for PermCath insertion. The object is to facilitate transfer to use of the right brachial cephalic on a regular basis. The procedure, its risks, benefits, expected outcome and alternatives are understood and accepted by the patient and her family.
--- NOTE | 2017-12-03 16:46 | RADIOLOGY REPORT (SQ) ---
EXAM DESCRIPTION: FLUORO/CV PLACEMENT COMPLETED DATE/TIME: 12/03/2017 3:12 pm REASON FOR STUDY: PERMCATH [facility] RT SIDE ASST WITH FLUORO IN OR T82.858A STENOSIS OF OTHER VASCULAR PROSTH DEV/GRFT, INIT Z79.01 GROUP HOME (CURRENT) USE OF ANTICOAGULANTS COMPARISON: None. FLUOROSCOPY TIME: 0.2 minutes. 8 images saved to PACS. TECHNIQUE: Intra-operative images acquired during surgical procedure to evaluate progress. NUMBER OF IMAGES: 80 images. LIMITATIONS: None. FINDINGS: Images of the chest acquired during catheter placement. IMPRESSION: IMAGE(S) OBTAINED DURING PROCEDURE. COMMENT: Quality ID [id number]: Final reports for procedures using fluoroscopy that document radiation exp osure indices, or exposure time and number of fluorographic images (if radiation exposure indices are not available) Please consult full operative report of the attending physician for description of the procedure. TECHNICAL DOCUMENTATION: JOB ID: [id number] [employer]- All Rights Reserved Reading location - IP/workstation name: [email or web address]
[2017-12-03] MEDS ORDERED: DEXAMETHASONE SOD PHOSPHATE INJ 4 MG/1 ML VIAL ONE (17:35)
[2017-12-03] MEDS ORDERED: SCOPOLAMINE HYDROBROMIDE 1.5 MG PATCH.TD72 ONE (17:35)
[2017-12-03 19:06] VITALS: BP 160/88
== END 2017-12-03 19:00 | disposition home or self-care (01) ==
LOC: OROUT 12:13
PROVIDERS: ATTEND Surgery
PROC: 05HM33Z Insertion of Infusion Device into Right Internal Jugular Vein, Percutaneous Approach (ICD-10-PCS; principal; 2017-12-03 15:00)
DX: T82.858A Stenosis of other vascular prosthetic devices, implants and grafts, initial encounter (principal); Y83.2 Surgical operation with anastomosis, bypass or graft as the cause of abnormal reaction of the patient, or of later complication, without mention of misadventure at the time of the procedure; I13.2 Hypertensive heart and chronic kidney disease with heart failure and with stage 5 chronic kidney disease, or end stage renal disease; D63.1 Anemia in chronic kidney disease; I50.9 Heart failure, unspecified; E10.22 Type 1 diabetes mellitus with diabetic chronic kidney disease; N18.6 End stage renal disease; Z99.2 Dependence on renal dialysis; I25.10 Atherosclerotic heart disease of native coronary artery without angina pectoris; E03.9 Hypothyroidism, unspecified; Z79.82 Long term (current) use of aspirin; Z79.899 Other long term (current) drug therapy
CPT/HCPCS: 36415; 85027; 85610; 85730; 80048; 77001; 93005; 93010; 36561; C1713; C1752; Q9967; J2250; J3490 ×3; J0690; J1100; J3010; J2405; J2704; J1644; 532

== ENCOUNTER 2017-12-19 08:56 | Day surgery (SDC) | payer MEDICARE, MEDICAID ==
[~2017-12-19 08:56] MED LIST changes: -BACITRACIN INJ 50,000 UNIT VIAL ONE; -BUPIVACAINE HCL 0.25 % INJ/PF (2.5 MG/1 ML) 30 ML VIAL ONE; -CEFAZOLIN 1 GM/D5W RTU 1 GM/50 ML RTUPB IV PRN; +DIAZEPAM 5 MG TABLET PO PRN; -LIDOCAINE 0.5% INJ-PF (5 MG/ML) 50 ML SDV ONE; -LIDOCAINE 0.5% INJ-PF (5 MG/ML) 50 ML SDV SUBCUT PRN; -NORMAL SALINE 1000 ML (RENAL PATIENTS) IV PRN; -THROMBIN (BOVINE) TOPICAL 5000 UNIT VIAL ONE
[2017-12-19 09:50] LABS: HEMATOCRIT 30.2 % (36.0-47.0); HEMOGLOBIN 10.2 g/dL (12.0-15.5); MEAN CORPUSCULAR HEMOGLOBIN 30.2 pg (27.0-33.4); MEAN CORPUSCULAR HGB CONC 33.8 g/dL (32.0-36.0); MEAN CORPUSCULAR VOLUME 90 fl (80-97); PLATELET COUNT 209 10^3/uL (150-450); RED BLOOD COUNT 3.38 10^6/uL (3.72-5.28); RED CELL DISTRIBUTION WIDTH 15.5 % (11.5-14.0); WHITE BLOOD COUNT 12.4 10^3/uL (4.0-10.5)
[2017-12-19 10:12] LABS: ANION GAP 7 (5-19); BLOOD UREA NITROGEN 29 mg/dL (7-20); CALCIUM 9.3 mg/dL (8.4-10.2); CARBON DIOXIDE 29 mmol/L (22-30); CHLORIDE 99 mmol/L (98-107); GLUCOSE 102 mg/dL (75-110); SODIUM 134.9 mmol/L (137-145)
[2017-12-19] MEDS ORDERED: HEPARIN SOD (PORCINE) 5,000 UNIT/ML 1 ML SYRINGE ONE (10:17)
[2017-12-19] MEDS ORDERED: MIDAZOLAM 2 MG/2 ML INJ ONE (10:17)
[2017-12-19] MEDS ORDERED: LIDOCAINE 0.5% INJ-PF (5 MG/ML) 50 ML SDV ONE (10:17)
[2017-12-19] MEDS ORDERED: FENTANYL CITRATE INJ/PF 100 MCG/2 ML AMPUL ONE (10:17)
--- NOTE | 2017-12-19 12:20 | PDOC H&P ---
General Chief Complaint: The patient is admitted for angioplasty and maturation of her right arm AV fistula. The fistula has been unusable and that she is being dialyzed for the permacatheter. - Current Medications/Allergies Home Medications: Amlodipine Besylate 10 mg PO BID 09/26/17 Aspirin [Aspirin EC] 81 mg PO DAILY 09/26/17 Calcitriol 1 cap PO DAILY 09/26/17 Carvedilol [Coreg 25 mg Tablet] 1 tab PO BID 09/26/17 Clonidine HCl 0.1 mg PO TID 09/26/17 Ferrous Sulfate 325 mg PO DAILY 09/26/17 Furosemide [Lasix 40 mg Tablet] 40 mg PO BID 09/26/17 Levothyroxine Sodium [Synthroid 0.025 mg Tablet] 25 mcg PO DAILY 09/26/17 Allergies/Adverse Reactions: No Known Allergies Allergy (Verified 12/19/17 09:40) Past Medical History Cardiac Medical History: Reports: Congestive Heart Failure, Coronary Artery Disease, Hypertension - ON MEDS Denies: DVT, Myocardial Infarction, Pulmonary Embolism Pulmonary Medical History: Denies: Asthma, Bronchitis, Chronic Obstructive Pulmonary Disease (COPD), Pneumonia, Sleep Apnea Neurological Medical History: Denies: Seizures Endocrine Medical History: Reports: Diabetes Mellitus Type 1, Diabetes Mellitus Type 2, Hypothyroidism Denies: Hyperthyroidism GI Medical History: Denies: Cirrhosis, Gastroesophageal Reflux Disease, Hepatitis Musculoskeltal Medical History: Reports: Arthritis - GENERALIZED Psychiatric Medical History: Denies: Depression Hematology: Reports: Anemia Infectious Medical History: Denies: Clostridium Difficile, Methicillin-Resistant Staph Aureus Past Surgical History Past Surgical History: Reports: Orthopedic Surgery - HERNIATED DISCS, Other - Abdominal surgery for "blockage." Denies: Hysterectomy Family History Family History: CAD Parental Family History Reviewed: No Children Family History Reviewed: No Sibling(s) Family History Reviewed.: No Social History Smoking Status: Never Smoker Frequency of Alcohol Use: None Hx Recreational Drug Use: No Hx Prescription Drug Abuse: No Physical Exam Vital Signs: Temp Pulse Resp BP Pulse Ox 98.2 F 75 18 164/51 H 97 12/19/17 09:00 12/19/17 09:00 12/19/17 09:00 12/19/17 09:00 12/19/17 09:00 Intake & Output 12/18/17 12/19/17 12/20/17 06:59 06:59 06:59 Weight 52.163 kg 52.163 kg Additional comments: Constitutional: Well-developed well-nourished -[place] lady. No apparent acute distress. Eyes: Mucous membranes pink and moist, pupils equal and reactive to light. Conjunctiva normal. Cornea normal. Wears spectacles. ENT: Hearing grossly normal. External pinna normal to inspection. Dentures. Tongue normal to inspection. Cardiac: Heart sounds 1 2 normal. Respiratory breath sounds are present bilaterally, normal. Normal respiratory effort. Psychiatric: Judgment, memory, insight seem normal. Mood is pleasant and appropriate. Extremities: Upper extremities show normal range of movement. Pulses present noted to the radial arteries. Capillary refill normal. No cyanosis noted. No muscle wasting noted. Right upper extremity has a brachiocephalic fistula. Nicely palpable but on the small side. An area of induration noted at about 8 cm. This could represent stenosis. Impression/Plan Plan: The plan is to get this fistula usable for dialysis. It will therefore be subject to angiogram and angioplasty with the hope of getting her off her PermCath as soon as possible. Procedure, its risks, benefits, expected outcome were discussed with the patient and her daughter. Questions and concerns addressed and they are agreeable.
--- NOTE | 2017-12-19 12:23 | Discharge Summary ---
Discharge Summary (SDC) - Discharge Final Diagnosis: #1 malfunctioning AV fistula right brachiocephalic. 2. PermCath in place. 3. End-stage renal disease on hemodialysis. 4. Hypertension. Date of Surgery: 12/19/17 Discharge Date: 12/19/17 Condition: Good Treatment or Instructions: Discharge home [after recovery per ASU criteria]. Diet , [renal],as tolerated, when fully awake advance as tolerated. Activities within moderation encouraged. Follow up in my office by appointment in about 2 weeks. Call for appointment. Leave wounds [covered], [keep clean and dry, until hemodialysis. Meds per med rec. Hold of on school/work [until evaluation in office]. May shower [in 48 hrs], [try to keep operated area as dry as possible]. Referrals: ALVARO CAMARA MD [Primary Care Provider] - Discharge Diet: Other (Comments) - Renal Respiratory Treatments at Home: Deep Breathing/Coughing Discharge Activity: Activity As Tolerated Report the Following to Your Physician Immediately: Unusual Bleeding
--- NOTE | 2017-12-19 12:29 | Operative Report ---
Operative Report DATE OF SURGERY: 12/19/17 PREOPERATIVE DIAGNOSIS: #1 malfunctioning AV fistula right brachiocephalic. 2. PermCath in place. 3. End-stage renal disease on hemodialysis. 4. Hypertension. POSTOPERATIVE DIAGNOSIS: #1 malfunctioning AV fistula right brachiocephalic. 2. PermCath in place. 3. End-stage renal disease on hemodialysis. 4. Hypertension. OPERATION: 1. Ultrasound evaluation of the arm brachiocephalic vein. 2. Real- time access into the arterial fistula in the right brachiocephalic under ultrasound guidance. 3. Angioplasty. 4. Angiogram and interpretation. SURGEON: MELISA DEAN DIGITAL ARTIST: None ANESTHESIA: Moderate Sedation TISSUE REMOVED OR ALTERED: Not applicable. COMPLICATIONS: Mild extravasation about 3 cm above the anastomosis. ESTIMATED BLOOD LOSS: 2 mL. INTRAOPERATIVE FINDINGS: Of a well founded arteriovenous fistula, brachiocephalic right. Somewhat hyper pulsatile in the first 5 or 6 cm. Somewhat softer cephalad. Findings concordant with the fistula which is up to 6.3 mm in diameter near the deltoid narrowing further towards the elbow. Concordant with the angiographic findings of a chain of lakes stenoses representing about 70% of the adjacent lumen from both 4 cm to about 6 cm above the anastomosis. These were entirely corrected with a 6 mm angioplasty balloon. Further dilatation was stopped because of a visible swelling just below the elbow which was consistent with extravasation, mild seen on angiogram. After risks of about a week this fistula should be available for use. Further maturation with a 7 mm balloon may be indicated. PROCEDURE: PROCEDURE: After verifying the procedure and having obtained informed consent, the patient's right arm and forearm were prepared with Chlorhexidine and draped out with sterile linen. Local anesthesia infiltrated. Percutaneous access into the fistula ,[retrograde], obtained about [20 cm] from the arteriovenous anastomosis using a micro puncture needle followed by micro puncture wire and then a micro puncture catheter. This was done on ultrasound guidance using real-time access into the vein. Ultrasound was also used to size the vein. Angiogram demonstrated the aforementioned findings. Angioplasty was elected. A 0.035 [place] wire was inserted, and over this, a 5 [place] short introducer was placed, this was followed by a 6 mm angioplasty balloon . This would not pass through the introducer and therefore the 5 [place] introducer was swapped for a 6 [place] introducer. Angioplasty was now done at the culprit segment. This was done very carefully and in the up using a 3 mils syringe and sustained for 2 minutes. Completion angiogram demonstrated [satisfactory result]. The instrumentation was now withdrawn ove on pressure for 10 minutes. Dressings applied, procedure concluded. Exposure time: 0 minutes Radiation: 2.29 Darlene voss. Contrast: 15 mL of Isovue-M 300 low osmolality. DICTATING PHYSICIAN: MELISA MÉNDEZ M.D. cc: MELISA MÉNDEZ M.D. ([id number]) >>
--- NOTE | 2017-12-19 13:32 | RADIOLOGY REPORT (SQ) ---
EXAM DESCRIPTION: FISTULAGRAM W/PLASTY COMPLETED DATE/TIME: 12/19/2017 12:15 pm REASON FOR STUDY: T82.858A T85.858A STENOSIS DUE TO OTHER INTERNAL PROSTH DEV/GRFT, INI T82.858A S TENOSIS OF OTHER VASCULAR PROSTH DEV/GRFT, INIT COMPARISON: None. FLUOROSCOPY TIME: 0.6 minutes 30 images saved to PACS. TECHNIQUE: Intra-operative images acquired during surgical procedure to evaluate progress. NUMBER OF IMAGES: 30 LIMITATIONS: None. FINDINGS: Selected images from arteriography and balloon angioplasty upper extremity dialysis graft. IMPRESSION: IMAGE(S) OBTAINED DURING PROCEDURE. COMMENT: Quality ID [id number]: Final reports for procedures using fluoroscopy that document radiation exp osure indices, or exposure time and number of fluorographic images (if radiation exposure indices are not available) Please consult full operative report of the attending physician for description of the procedure. TECHNICAL DOCUMENTATION: JOB ID: [id number] [employer]- All Rights Reserved Reading location - IP/workstation name: [email or web address]
[2017-12-19 14:45] VITALS: BP 155/56
== END 2017-12-19 13:30 | disposition home or self-care (01) ==
LOC: CCL 08:56
PROVIDERS: ATTEND Surgery
DX: T82.858A Stenosis of other vascular prosthetic devices, implants and grafts, initial encounter (principal); Y83.2 Surgical operation with anastomosis, bypass or graft as the cause of abnormal reaction of the patient, or of later complication, without mention of misadventure at the time of the procedure; I13.2 Hypertensive heart and chronic kidney disease with heart failure and with stage 5 chronic kidney disease, or end stage renal disease; I50.9 Heart failure, unspecified; E11.22 Type 2 diabetes mellitus with diabetic chronic kidney disease; N18.6 End stage renal disease; Z99.2 Dependence on renal dialysis; E07.9 Disorder of thyroid, unspecified
CPT/HCPCS: 36415; 85027; 80048; 36902; 76937; C1725; C1752; C1887; Q9967; C1769; J2250; J1644 ×2; A9270; J3010; J3490

== ENCOUNTER → 2018-02-22 | Outpatient (CLI) | payer MEDICARE, MEDICAID ==
[2018-02-22 10:44] LABS: CHOLESTEROL 212.96 mg/dL (0-200); TRIGLYCERIDES 62 mg/dL (<150)
[2018-02-22 10:55] LABS: DIRECT LDL 111 mg/dL (<100)
[2018-02-25 10:37] LABS: A/G RATIO 1.2 (0.7-1.7); ALBUMIN 2 3.3 g/dL (2.9-4.4); ALPHA-2-GLOBULIN 2 0.6 g/dL (0.4-1.0); BETA GLOBULINS 0.9 g/dL (0.7-1.3); GLOBULIN TOTAL 2.7 g/dL (2.2-3.9); MONOCLONAL SPIKE Not Observed g/dL (Not Observ)
== END ==
LOC: LAB 09:37
PROVIDERS: ATTEND Family Medicine Geriatric Medicine
DX: N18.6 End stage renal disease (principal); D64.9 Anemia, unspecified; E03.9 Hypothyroidism, unspecified; R63.4 Abnormal weight loss; Z79.899 Other long term (current) drug therapy
CPT/HCPCS: 36415; 80061; 84165; 84443

== ENCOUNTER 2018-02-25 10:02 | Day surgery (SDC) | payer MEDICARE, MEDICAID ==
[2018-02-25] MEDS ORDERED: DIAZEPAM 5 MG TABLET ONE (10:46)
[2018-02-25 10:58] LABS: ABSOLUTE BASOPHILS # (AUTO) 0.1 10^3/uL (0.0-0.2); ABSOLUTE EOSINOPHILS # (AUTO) 0.2 10^3/uL (0.0-0.6); ABSOLUTE LYMPHOCYTES (AUTO) 1.5 10^3/uL (0.5-4.7); ABSOLUTE MONOCYTES (AUTO) 0.4 10^3/uL (0.1-1.4); ABSOLUTE NEUT (AUTO) 7.2 10^3/uL (1.7-8.2); BASOPHILS % (AUTO) 0.7 % (0-2); EOSINOPHILS % (AUTO) 1.7 % (0-6); HEMATOCRIT 33.7 % (36.0-47.0); HEMOGLOBIN 11.3 g/dL (12.0-15.5); LYMPHOCYTES % (AUTO) 15.5 % (13-45); MEAN CORPUSCULAR HEMOGLOBIN 32.2 pg (27.0-33.4); MEAN CORPUSCULAR HGB CONC 33.6 g/dL (32.0-36.0); MEAN CORPUSCULAR VOLUME 96 fl (80-97); MONOCYTES % (AUTO) 4.7 % (3-13); PLATELET COUNT 234 10^3/uL (150-450); RED BLOOD COUNT 3.52 10^6/uL (3.72-5.28); RED CELL DISTRIBUTION WIDTH 13.6 % (11.5-14.0); SEGMENTED NEUTROPHILS % (AUTO) 77.4 % (42-78); TOTAL CELLS COUNTED % (AUTO) 100 %; WHITE BLOOD COUNT 9.4 10^3/uL (4.0-10.5)
[2018-02-25 11:19] LABS: ANION GAP 13 (5-19); BLOOD UREA NITROGEN 34 mg/dL (7-20); CALCIUM 9.8 mg/dL (8.4-10.2); CARBON DIOXIDE 26 mmol/L (22-30); CHLORIDE 102 mmol/L (98-107); GLUCOSE 167 mg/dL (75-110); POTASSIUM 4.1 mmol/L (3.6-5.0)
[2018-02-25] MEDS ORDERED: LIDOCAINE 0.5% INJ-PF (5 MG/ML) 50 ML SDV ONE (11:26)
[2018-02-25] MEDS ORDERED: FENTANYL CITRATE INJ/PF 100 MCG/2 ML AMPUL ONE (11:28)
[2018-02-25] MEDS ORDERED: MIDAZOLAM 2 MG/2 ML INJ ONE (11:28)
[2018-02-25] MEDS ORDERED: HEPARIN SOD (PORCINE) 5,000 UNIT/ML 1 ML SYRINGE ONE (11:29)
--- NOTE | 2018-02-25 13:12 | Discharge Summary ---
Discharge Summary (SDC) - Discharge Final Diagnosis: #1 malfunctioning arteriovenous fistula, right brachiocephalic. 2. End-stage renal disease on hemodialysis. Date of Surgery: 02/25/18 Discharge Date: 02/25/18 Forms: ASU Anesthesia D/C Instruction, Discharge POC-Surgical Service Treatment or Instructions: Discharge home [after recovery per ASU criteria]. Diet , [renal],as tolerated, when fully awake advance as tolerated. Activities within moderation encouraged. Follow up in my office by appointment in about [1 week]. Call for appointment. Leave wounds [covered], [keep clean and dry, until office visit in 1 week]. Hold of on school/work [until evaluation in office]. Meds per med rec. May shower [in 48 hrs], [try to keep operated area as dry as possible]. Referrals: MELISA MÉNDEZ MD [ACTIVE STAFF] - 03/06/18 10:45 am Respiratory Treatments at Home: Deep Breathing/Coughing Discharge Activity: Activity As Tolerated, Balance Activity w/Rest, No Driving, Energy Conservation, No Lifting Over 10 Pounds, No Lifting/Push/Pulling, Slowly Increase Activity, Walk Frequently Home Care Assistance: Provided by Family Report the Following to Your Physician Immediately: Shortness of Breath, Nausea , Vomiting, Increase in Pain, Fever over 101 Degrees, Unusual Bleeding, Redness , Swelling, Warmth, Increased Soreness, Drainage-Foul Smelling, Large Clots, Numbness, Tingling Sensation, Weight Gain 2-3lbs a day, IV Site Infection Signs
--- NOTE | 2018-02-25 13:15 | Operative Report ---
Operative Report DATE OF SURGERY: 02/25/18 PREOPERATIVE DIAGNOSIS: #1 malfunctioning arteriovenous fistula, right brachiocephalic. 2. End-stage renal disease on hemodialysis. POSTOPERATIVE DIAGNOSIS: #1 malfunctioning arteriovenous fistula, right brachiocephalic. 2. End-stage renal disease on hemodialysis. OPERATION: 1. Needle introduction of the fistula. 2. Fistula angioplasty. 3. Angiogram and interpretation. SURGEON: MELISA DEAN COMPENSATION AND BENEFITS MANAGER: None. ANESTHESIA: Moderate Sedation TISSUE REMOVED OR ALTERED: Not applicable. COMPLICATIONS: None. ESTIMATED BLOOD LOSS: 2 mL. INTRAOPERATIVE FINDINGS: A satisfactorily founded right brachiocephalic fistula. Somewhat firm and is first 8 cm with good bruit and good thrill. Possibly some narrowing in the superior vena cava. Overall fistula is somewhat small size. Responded well to dilatation up to 7 mm. More easily palpable after. Of note is edema from probable extravasation in the mid arm and over the last few weeks, getting less prominent. PROCEDURE: PROCEDURE: After verifying the procedure and having obtained informed consent, the patient's right arm was prepared with Chlorhexidine and draped out with sterile linen. Local anesthesia infiltrated. Percutaneous access into the fistula ,[ antegrade], obtained about [2 cm] from the arteriovenous anastomosis using a micro puncture needle followed by micro puncture wire and then a micro puncture catheter. Angiogram demonstrated the aforementioned findings. Angioplasty was elected. A 0.035 [place] wire was inserted, and over this, a 6 Chinese short introducer was placed, this was followed by a [7-mm ] angioplasty balloon . Angioplasty was serially done in the mid arm. Inflating using a 3 mils syringe for a minute at a time.]. Completion angiog hand pressure for 10 minutes. Dressings applied, procedure concluded. Exposure time: 0.7 minutes. Radiation: 5.74 Darlene voss. Contrast: 5 mils of Isovue-300, low osmolality. DICTATING PHYSICIAN: MELISA MÉNDEZ M.D. cc: MELISA MÉNDEZ M.D. ([id number]) >>
[2018-02-25 13:47] VITALS: BP 174/71
--- NOTE | 2018-02-25 13:55 | RADIOLOGY REPORT (SQ) ---
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 FLUOROSCOPY TIME: 0.2 minutes. 15 images saved to PACS. TECHNIQUE: Intra-operative images acquired during surgical procedure to evaluate progress. NUMBER OF IMAGES: 15 images. LIMITATIONS: None. FINDINGS: Imaging in fluoroscopy during right upper extremity dialysis access evaluation and plasty by Dr. Alston . Please refer to the operative report for further details. IMPRESSION: INTRA PROCEDURAL IMAGING ABOVE . COMMENT: Quality ID [id number]: Final reports for procedures using fluoroscopy that document radiation exp osure indices, or exposure time and number of fluorographic images (if radiation exposure indices are not available) Please consult full operative report of the attending physician for description of the procedure. TECHNICAL DOCUMENTATION: JOB ID: [id number] [employer]- All Rights Reserved Reading location - IP/workstation name: [email or web address]
== END 2018-02-25 13:48 | disposition home or self-care (01) ==
LOC: CCL 10:02
PROVIDERS: ATTEND Surgery
DX: T82.858A Stenosis of other vascular prosthetic devices, implants and grafts, initial encounter (principal); Y83.2 Surgical operation with anastomosis, bypass or graft as the cause of abnormal reaction of the patient, or of later complication, without mention of misadventure at the time of the procedure; E11.22 Type 2 diabetes mellitus with diabetic chronic kidney disease; N18.6 End stage renal disease; Z99.2 Dependence on renal dialysis; E07.9 Disorder of thyroid, unspecified; I50.9 Heart failure, unspecified; Z79.899 Other long term (current) drug therapy
CPT/HCPCS: 36415; 85025; 80048; 36902; C1752; C1725; Q9967; C1769; J2250; J1644 ×2; A9270; J3010; J3490

== ENCOUNTER → 2019-02-25 | Outpatient (CLI) | payer MEDICARE, MEDICAID ==
[2019-02-25 10:22] LABS: ABSOLUTE EOSINOPHILS # (AUTO) 0.3 10^3/uL (0.0-0.6); ABSOLUTE LYMPHOCYTES (AUTO) 1.6 10^3/uL (0.5-4.7); ABSOLUTE MONOCYTES (AUTO) 0.5 10^3/uL (0.1-1.4); ABSOLUTE NEUT (AUTO) 5.9 10^3/uL (1.7-8.2); BASOPHILS % (AUTO) 0.5 % (0-2); EOSINOPHILS % (AUTO) 4.1 % (0-6); HEMATOCRIT 37.8 % (36.0-47.0); HEMOGLOBIN 12.6 g/dL (12.0-15.5); LYMPHOCYTES % (AUTO) 19.4 % (13-45); MEAN CORPUSCULAR HEMOGLOBIN 32.9 pg (27.0-33.4); MEAN CORPUSCULAR HGB CONC 33.4 g/dL (32.0-36.0); MEAN CORPUSCULAR VOLUME 99 fl (80-97); MONOCYTES % (AUTO) 6.2 % (3-13); PLATELET COUNT 195 10^3/uL (150-450); RED BLOOD COUNT 3.83 10^6/uL (3.72-5.28); RED CELL DISTRIBUTION WIDTH 14.3 % (11.5-14.0); SEGMENTED NEUTROPHILS % (AUTO) 69.8 % (42-78); TOTAL CELLS COUNTED % (AUTO) 100 %; WHITE BLOOD COUNT 8.4 10^3/uL (4.0-10.5)
[2019-02-25 10:33] LABS: ALANINE AMINOTRANSFERASE 13 U/L (9-52); ALBUMIN 3.9 g/dL (3.5-5.0); ALKALINE PHOSPHATASE 117 U/L (38-126); ANION GAP 13 (5-19); ASPARTATE AMINO TRANSFERASE 17 U/L (14-36); BILIRUBIN,DIRECT 0.5 mg/dL (0.0-0.4); BILIRUBIN,TOTAL 0.6 mg/dL (0.2-1.3); BLOOD UREA NITROGEN 46 mg/dL (7-20); CALCIUM 11.8 mg/dL (8.4-10.2); CARBON DIOXIDE 29 mmol/L (22-30); CHLORIDE 98 mmol/L (98-107); CHOLESTEROL 210.54 mg/dL (0-200); GLUCOSE 126 mg/dL (75-110); POTASSIUM 4.2 mmol/L (3.6-5.0); SODIUM 139.5 mmol/L (137-145); TOTAL PROTEIN 6.9 g/dL (6.3-8.2); TRIGLYCERIDES 80 mg/dL (<150)
[2019-02-25 10:43] LABS: DIRECT LDL 108 mg/dL (<100)
[2019-02-27 14:37] LABS: HGB A 98.4 % (96.4-98.8); HGB A2 1.6 % (1.8-3.2); HGB SOLUBILITY RESULT Negative (Negative)
== END ==
LOC: LAB 09:41
PROVIDERS: ATTEND Family Medicine Geriatric Medicine
DX: E03.9 Hypothyroidism, unspecified (principal); I11.0 Hypertensive heart disease with heart failure; I50.32 Chronic diastolic (congestive) heart failure; D64.9 Anemia, unspecified; Z79.899 Other long term (current) drug therapy
CPT/HCPCS: 36415; 80053; 80061; 83020; 84443; 85025